=== PATIENT | male | born 1965 | race Caucasian/White ===

== ENCOUNTER 2024-07-11 16:23 | Emergency (ER) | payer OTHER, SELFPAY ==
[2024-07-11 16:25] VITALS: BMI 25.8
[2024-07-11 16:35] VITALS: BP 137/85
[2024-07-11 16:51] LABS: % Basophils 0.5 % (0-2); % Immature Granulocytes 0.2 % (0-0.5); % Lymphocytes 28.4 % (20.5-51.1); % Monocytes 7.7 % (1.7-9.3); % Neutrophils 62.2 % (42.2-75.2); Absolute Eosinophils 0.1 10^3/uL (0-0.7); Absolute Lymphocytes 1.7 10^3/uL (1.2-3.4); Absolute Monocytes 0.5 10^3/uL (0.1-0.6); Absolute Neutrophils 3.7 10^3/uL (1.4-6.5); Hematocrit 38.4 % (39.0-52.0); Hemoglobin 13.7 g/dL (13.0-18.0); Mean Corp Hgb Conc. 35.7 g/dL (33.0-37.0); Mean Corpuscular Hgb 29.7 pg (27.0-31.0); Mean Corpuscular Volume 83.1 fL (80.0-94.0); Mean Platelet Volume 10.3 fL (7.4-10.4); Nucleated Red Blood Cells % 0 % (-); Platelet Count 281 10^3/uL (130-400); Red Blood Cell Count 4.62 10^6/uL (4.70-6.10); Red Cell Dist. Width 13.1 % (11.5-14.5)
[2024-07-11 17:00] VITALS: BP 151/79
[2024-07-11 17:09] LABS: ALT (SGPT) 24 U/L (0-50); AST (SGOT) 24 U/L (17-59); Albumin 3.9 g/dl (3.5-5.0); Alkaline Phosphatase 98 U/L (38-126); Blood Urea Nitrogen 15 mg/dl (9-20); Calcium 9.1 mg/dl (8.4-10.2); Carbon Dioxide 26 mmol/L (22-30); Chloride 99 mmol/L (98-107); Estimated Creatinine Clearance > 125 ml/min; Glucose 452 mg/dl (70-99); Potassium 3.9 mmol/L (3.5-5.1); Sodium 135 mmol/L (135-145); Total Bilirubin 0.4 mg/dl (0.2-1.3); Total Protein 6.7 g/dl (6.3-8.2); eGFR > 60.00
[2024-07-11] MEDS: PEPCID 20 MG IV (17:13)
[2024-07-11 17:17] LABS: Troponin I < 0.012 ng/ml
[2024-07-11] MEDS: NOVOLOG vial 10 UNITS SC (17:54)
[2024-07-11] MEDS: NSS 1000 IV (17:57)
[2024-07-11 19:15] LABS: Glucose - Point of Care 339 mg/dl (70-99)
[2024-07-11 20:27] VITALS: BP 169/84
[2024-07-11 20:35] LABS: Troponin I < 0.012 ng/ml
--- NOTE | 2024-07-11 20:51 | ED.GENMED ---
History of Present Illness
General
Chief Complaint: Chest Pain
Time Seen by Provider: 07/11/24 16:32
History of Present Illness
History of Present Illness:
58-year-old male presents to the emergency department for evaluation of episodic chest pain for the past several days. States he has had frequent episodes that occur after eating particular today after eating a slice of pizza however did have
episodes of pain after ambulating last week. Pain is currently rated 3 out of 10, received aspirin and sublingual nitroglycerin prehospital. No history of similar pain. Denies any fevers or chills, denies shortness of breath or abdominal pain at
this time.
Past History
Past History
ED Past Medical History: HTN, Hypercholesterolemia, IDDM and Other
ED Past Surgical History: None
Patient has exhibited threatening behavior?: No
Social History
Tobacco: Former smoker
Alcohol: Occasional
Drug: Marijuana
Personal:
Living: with family
Employment: Employed
Family History
Family History: Cancer and Sudden
Review of Systems
Review of Systems
Allergies reviewed?: Yes
All Other Systems: ROS reviewed and negative except as documented in HPI and ROS
Phy Exam
Physical Exam
Physical Exam:
GEN: Well appearing, NAD, WDWN
Eyes: PERRLA, EOMs intact, no scleral icterus
HENT: NCAT, oral mucosa moist, no JVD
Lungs: CTAB, no wheezes, rales, rhonchi, normal chest wall excursion
Cardiac: RRR, no M/R/G, no peripheral edema. Radial pulses 2+ bilat
Abdomen: S, NT, ND, NABS, no masses or hepatosplenomegaly
Neuro: AO x 3
MSK: No gross deformity or ecchymosis. No edema. No digital clubbing
Skin: No rashes, petechiae. Normal color, no pallor or jaundice.
Psych: Calm, cooperative, proper hygiene
Scores
Heart Score for Chest Pain Patients
STEMI patient?: No
History: Slightly or Non-Suspicious
ECG: Normal
Age: >45 - <65 years
Risk Factors: >/= 3 Risk Factors or History of CAD
Troponin: </= Normal Limit
Heart Score for Chest Pain Patients: 3
Heart Score Risk: 2.5% MACE over next 6 weeks
Course
Orders/Labs/Results
Orders:
Orders
07/11/24 16:27
Electrocardiogram (*1) Urgent
Reason for Study: Chest Pain
EKG- Treatment ONCE
07/11/24 16:40
Complete Blood Count/With Diff Urgent
Comprehensive Metabolic Panel Urgent
Troponin I Urgent
07/11/24 16:57
Famotidine [Pepcid] 20 mg IV NOW STA
07/11/24 17:34
EKG- Treatment ONCE
07/11/24 17:35
0.9% Sodium Chloride 1000 ml [Nss] 1,000 ml IV BOLUS
Insulin Aspart [NOVOLOG vial] 10 units SC NOW STA
CR Chest - 2 Views Urgent
Comment:
Reason For Exam: chest pain
07/11/24 19:00
Bedside Glucose- Treatment ONCE
07/11/24 19:40
Electrocardiogram (*1) Urgent
Reason for Study: Chest Pain
07/11/24 20:02
Troponin I Urgent
Abnormal Lab Results
07/11/24 07/11/24
16:40 19:14
RBC 4.62 L 10^6/uL
(4.70-6.10)
Hct 38.4 L %
(39.0-52.0)
Creatinine 0.5 L mg/dL
(0.7-1.3)
Glucose 452 H* mg/dl
(70-99)
POC Glucose 339 H mg/dl
(70-99)
07/11/24 16:40
07/11/24 16:40
Vital Signs
Initial and Last Documented VS:
Initial Vital Signs
Temp Pulse Resp BP Pulse Ox
97.8 F 94 20 137/85 96
07/11/24 16:35 07/11/24 16:35 07/11/24 16:35 07/11/24 16:35 07/11/24 16:35
Last Documented Vital Signs
Temp Pulse Resp BP Pulse Ox
97.8 F 73 18 169/84 98
07/11/24 16:35 07/11/24 20:26 07/11/24 18:15 07/11/24 20:27 07/11/24 18:30
MDM/Problems Addressed
MDM/Problems Addressed:
Patient's clinical presentation is consistent more with GERD/esophagitis than it is with ACS, nevertheless he has numerous cardiovascular risk factors thus initial and delta troponins were obtained showing no ischemic changes, EKG is unremarkable.
The picture is more compatible with GERD thus we will treat with PPIs however given his numerous risk factors will refer through the chest pain hotline to cardiology as an outpatient
Comment
Comment:
Patient's EKG independently interpreted by me shows a normal sinus rhythm with no ST changes concerning for ischemia
*Critical Care Note
Total Time (30-74mins, 75-104mins- exclusive of procedures): Not Applicable
ED Attending Note
-
Portions of this chart may have been created with voice recognition software.� Occasional wrong word or��sound alike� substitutions may have occurred due to the inherent limitations of voice recognition software.
Discharge Plan
Departure
Patient Disposition: Home (Routine Discharge)
Date of Disposition: 07/11/24
Time of Disposition: 20:51
Patient with high blood pressure during this ER visit?: No
Discharge Problem:
Chest pain
Instructions: Chest Pain CBC Follow Up
Prescriptions:
New
pantoprazole 40 mg tablet,delayed release (DR/EC)
40 mg PO DAILY Qty: 14 0RF
No Action
acarbose 50 MG tablet
50 mg PO DAILY
rosuvastatin 20 MG tablet
20 mg PO DAILY
insulin glargine [Lantus Solostar U-100 Insulin] 300 UNITS/3 ML insulin pen
43 units SC HS
amlodipine 5 mg Tablet
5 mg PO DAILY
lisinopril-hydrochlorothiazide 20-25 mg Tablet
1 tab PO DAILY
aspirin 81 mg Tablet,Chewable
81 mg PO DAILY
cholecalciferol (vitamin D3) [Vitamin D3] 25 mcg (1,000 unit) Tablet
25 mcg PO DAILY
Referrals:
Annmarie Pulido CRNP [Family Provider] -
Activity Restrictions/Additional Instructions:
I suspect your symptoms were more due to acid reflux however due to your severe cardiac risk factors we will refer you to cardiology for a follow-up evaluation
Monitor your glucose more carefully
Interventions
Interventions:
*Risk Screen - Suicide Last Done: 07/11/24 16:39
*Neglect/Abuse Screening Last Done: 07/11/24 16:39
*ED COVID-19 Vaccine History Last Done: 07/11/24 16:39
*Nursing Disposition Last Done: 07/11/24 21:07
ED- Cardiac Assessment Last Done: 07/11/24 17:00
Discharge Date and Time
Discharge Date/Time: 07/11/24 21:07
Print Language: PERSIAN
== END 2024-07-11 21:07 | disposition home or self-care (01) ==
LOC: EMR 16:23
PROVIDERS: Physician Assistant; EMERGENCY PHYSICIAN Emergency Medicine; FAMILY PHYSICIAN Nurse Practitioner
DX: R07.9 Chest pain, unspecified (principal); E11.9 Type 2 diabetes mellitus without complications; E78.00 Pure hypercholesterolemia, unspecified; I10 Essential (primary) hypertension; Z87.891 Personal history of nicotine dependence; Z79.4 Long term (current) use of insulin
CPT/HCPCS: 96374; 96372; 96361; 99285; 71046; 80053; 82962; 84484; 85025; 93005

== ENCOUNTER → 2024-08-11 07:00 | Outpatient (REF) | payer OTHER, SELFPAY | LOC: RCS 07:00 | PROVIDERS: ATTENDING PHYSICIAN Internal Medicine Cardiovascular Disease; FAMILY PHYSICIAN Physician Assistant | DX: R07.89 Other chest pain (principal) | CPT/HCPCS: 93306 ==

== ENCOUNTER → 2024-08-17 08:14 | Outpatient (REF) | payer OTHER, SELFPAY | LOC: RCS 08:14 | PROVIDERS: ATTENDING PHYSICIAN Internal Medicine Cardiovascular Disease; FAMILY PHYSICIAN Physician Assistant | DX: R07.89 Other chest pain (principal) | CPT/HCPCS: 93017; 93350 ==

== ENCOUNTER 2024-09-19 06:24 | Day surgery (SDC) | payer OTHER, SELFPAY ==
[2024-09-19] VITALS (10 sets, daily range): BP systolic 133–183; BP diastolic 84–93; BMI 28.9
[2024-09-19 07:18] LABS: Glucose - Point of Care 186 mg/dl (70-99)
[2024-09-19] MEDS: LOW STRENGTH ASPIRIN 81 MG PO (07:37)
[2024-09-19] MEDS: NSS 282 ML IV (07:37)
[2024-09-19] MEDS: NSS 1000 IV (09:11)
--- NOTE | 2024-09-19 09:23 | ITS.CL.CATH ---
Quality Measurement Specialist - Catheterization
Cardiac Catheterization
Procedure Report:
LEFT HEART CATHETERIZATION
Date of Procedure: September 19, 2024
Referring: Dr. Pieter Ortiz
PROCEDURES:
1. Left heart catheterization with coronary and single-plane left ventriculography
INDICATION: This is a 58-year-old gentleman with a nearly 20-year history of poorly controlled diabetes mellitus, hypertension, hyperlipidemia, and rheumatoid arthritis. He was seen in the emergency department on 07/11/2024 for evaluation of
substernal chest pressure. A subsequent stress echocardiogram was notable for [address] segment depression that persisted throughout recovery. Normal LV imaging pre and post exercise. He is now referred for coronary
angiography in the setting of ongoing chest discomfort. An echocardiogram from 08/11/2024 is notable for preserved LV systolic function with moderate concentric LVH. There was trace mitral regurgitation, aortic valve sclerosis, and no significant
tricuspid regurgitation.
ACCESS: Right radial artery, 6 Kyrgyz sheath
HEMODYNAMICS : (mmHg)
AO (s/d) : 126/82
LV (s/d) : 131/15
LVEDP : 23
CORONARY FINDINGS
DOMINANCE: Right
LEFT MAIN: Normal
LEFT ANTERIOR DESCENDING: The LAD arises normally from the left main and runs in the anterior interventricular groove. There is a long 40-50% proximal to mid LAD stenosis. The first diagonal branch arises very proximally from the LAD and
bifurcates to 2 small diagonal branches in its midportion. Diffuse atherosclerotic disease is noted at the origin of the diagonal branch and in the midportion of the diagonal branch
CIRCUMFLEX: The circumflex is a large-caliber nondominant vessel supplying 2 large obtuse marginal branches. There is heavy calcification in the mid circumflex at the bifurcation of OM1 and OM 2. OM1 is a moderate to large vessel that has a long
80% proximal narrowing and OM 2 is more heavily calcified with a proximal 85% stenosis with a Brewer bifurcation class of 1,1,1. There is a long 70% stenosis in the midportion of OM 2.
RIGHT CORONARY ARTERY: The right coronary artery has a high anterior origin from the aorta with a long 70% stenosis in its midportion. The PDA arises distally. The posterolateral branch is a long 60% mid stenosis extending to a moderate caliber
distal posterolateral vessel.
VENTRICULOGRAPHY: Left ventriculography is performed in an KAYE projection. The digital single-plane left ventricular ejection fraction is estimated above 65% with no regional wall motion abnormalities. Catheter and PVC associated mitral
regurgitation was noted. There is only trivial mitral regurgitation noted in the first sinus beat following for PVCs.
RADIATION SUMMARY: Fluoro Time (min): 7.5, Dose (mGy): 775.3, DAP (Gy.cm2) : 54.5
Closure Device: TR band
CONCLUSIONS
1. Multivessel coronary artery disease with moderate atherosclerotic disease in the mid LAD but severe coronary atherosclerosis in the first diagonal branch, OM1, OM 2, and mid RCA as well as PLB. Given the patient's diabetes I would suspect he
will fare better long-term with surgical revascularization
2. Preserved LV systolic function
RECOMMENDATIONS
1. Increase lisinopril from 20 to 40 mg and change hydrochlorothiazide to 25 mg of chlorthalidone. Will increase carvedilol from 6.25 p.o. twice daily to 12.5 mg p.o. twice daily and titrate amlodipine from 5 mg daily to 5 mg twice daily.
2. Continue high intensity statin
3. Continue aspirin 81 mg daily
4. Follow-up appointment will be scheduled with CT surgery
Copy to: Dr. Pieter Ortiz
[2024-09-19] MEDS: ZESTRIL 40 MG PO (11:02)
[2024-09-19] MEDS: COREG 12.5 MG PO (11:03)
[2024-09-19] MEDS: NORVASC 5 MG PO (11:04)
== END 2024-09-19 12:16 | disposition home or self-care (01) ==
LOC: CATH 06:24
PROVIDERS: ATTENDING PHYSICIAN Internal Medicine Interventional Cardiology; FAMILY PHYSICIAN Family Medicine; OTHER PHYSICIAN Internal Medicine Cardiovascular Disease
DX: I25.10 Atherosclerotic heart disease of native coronary artery without angina pectoris (principal); R07.89 Other chest pain; E11.9 Type 2 diabetes mellitus without complications; I10 Essential (primary) hypertension; E78.5 Hyperlipidemia, unspecified; M06.9 Rheumatoid arthritis, unspecified; R94.31 Abnormal electrocardiogram [ECG] [EKG]; I08.0 Rheumatic disorders of both mitral and aortic valves; Z79.82 Long term (current) use of aspirin
CPT/HCPCS: 82962; 93458; C1894; Q9967

== ENCOUNTER → 2024-10-06 09:23 | Outpatient (REF) | payer OTHER, SELFPAY | LOC: HWRAD 09:23 | PROVIDERS: ATTENDING PHYSICIAN Thoracic Surgery (Cardiothoracic Vascular Surgery) | DX: I25.10 Atherosclerotic heart disease of native coronary artery without angina pectoris (principal); Z01.810 Encounter for preprocedural cardiovascular examination | CPT/HCPCS: 71250 ==

== ENCOUNTER 2024-10-13 04:59 | Inpatient (IN) | payer OTHER, SELFPAY ==
[2024-10-06 12:11] VITALS: BMI 28.0
[2024-10-06 12:54] LABS: % Basophils 0.5 % (0-2); % Eosinophils 1.9 % (0-6); % Immature Granulocytes 0.5 % (0-0.5); % Lymphocytes 32.6 % (20.5-51.1); % Neutrophils 57.5 % (42.2-75.2); Absolute Eosinophils 0.2 10^3/uL (0-0.7); Absolute Lymphocytes 2.5 10^3/uL (1.2-3.4); Absolute Monocytes 0.5 10^3/uL (0.1-0.6); Absolute Neutrophils 4.4 10^3/uL (1.4-6.5); Hematocrit 41.3 % (39.0-52.0); Hemoglobin 14.2 g/dL (13.0-18.0); Mean Corp Hgb Conc. 34.4 g/dL (33.0-37.0); Mean Corpuscular Hgb 28.6 pg (27.0-31.0); Mean Corpuscular Volume 83.1 fL (80.0-94.0); Mean Platelet Volume 10.8 fL (7.4-10.4); Nucleated Red Blood Cells % 0 % (-); Platelet Count 311 10^3/uL (130-400); Red Blood Cell Count 4.97 10^6/uL (4.70-6.10); Red Cell Dist. Width 13.5 % (11.5-14.5); White Blood Cell Count 7.7 10^3/uL (4.8-10.8)
[2024-10-06 12:59] LABS: Urine Albumin 3+ (Neg - Trace); Urine Bilirubin Negative (Negative); Urine Character Clear (Clear); Urine Color Yellow; Urine Glucose 3+ (Negative); Urine Ketone Negative (Negative); Urine Leukocyte Negative (Negative); Urine Nitrite Negative (Negative); Urine Occult Blood 1+ (Negative); Urine Specific Gravity 1.025 (<1.030); Urine Urobilinogen Negative (Neg - 1+)
[2024-10-06 13:06] LABS: INR 1.07; PT 14.3 Sec (11.4-14.6)
[2024-10-06 13:07] LABS: ALT (SGPT) 26 U/L (0-50); APTT 32.9 Sec (23.4-35.0); AST (SGOT) 21 U/L (17-59); Albumin 4.5 g/dl (3.5-5.0); Alkaline Phosphatase 90 U/L (38-126); Blood Urea Nitrogen 26 mg/dl (9-20); Carbon Dioxide 28 mmol/L (22-30); Chloride 100 mmol/L (98-107); Direct Bilirubin 0.1 mg/dl (0.0-0.4); Estimated Creatinine Clearance > 125 ml/min; Glucose 172 mg/dl (70-99); Potassium 4.2 mmol/L (3.5-5.1); Sodium 139 mmol/L (135-145); Total Bilirubin 0.4 mg/dl (0.2-1.3); Total Protein 7.9 g/dl (6.3-8.2); eGFR > 60.00
[2024-10-06 13:38] LABS: Urine Squamous Cell 0-2 /LPF (Few)
[2024-10-06 13:39] LABS: Urine Bacteria Few (Negative); Urine Red Blood Cell 0-2 /HPF (0-2)
--- NOTE | 2024-10-06 14:04 | CM ---
Met with Mr. Childs in [facility]. He states prior to admission he resides with his spouse and daughter in a two story home with two steps tp enter. He states he has a full flight of steps to get to bedroom/full bathroom. He states he has a powder room
on the first floor. He states prior to admission he was independent with ambulation and adls. He states he does not have any DME in the home. He states he gunn a prescription plan. He states his spouse will take a some time off to assist in his
care if needed. The discharge plan is to return home with his spouse and daughter and a home visit by the Transitional Care Nurse when medically stable.
We reviewed pre-op and post-op routines. We reviewed the shower instructions. He has the soap, written instructions and the Cardiothoracic Surgery Educational Booklet. We reviewed restrictions including sternal precautions and driving
restrictions. We also discussed a home visit by the Transitional Care Nurse. He is agreeable to a home visit. The plan is for CABG on Friday, October 11, 2024.
[2024-10-06 14:19] LABS: Glycohemoglobin (HgbA1c) 9.4 % (4.0-5.6)
[2024-10-13] VITALS (13 sets, daily range): BP systolic 87–171; BP diastolic 52–91; BMI 27.6
[2024-10-13] MEDS: PROTONIX 40 MG PO (05:22)
[2024-10-13] MEDS: LOPRESSOR 25 MG PO (05:23)
[2024-10-13] MEDS: MAGNESIUM OXIDE 500 MG PO (05:23)
[2024-10-13] MEDS: BACTROBAN 2% OINTMENT 1 APPLIC NASAL ×2 (05:58→20:04)
--- NOTE | 2024-10-13 06:12 | PTCARENOTE ---
admitted pt into [id number]. full admission and med rec completed. pt confirmed 2 showers and NPO since midnight. pt clipped and washed. all questions answered. awaiting CVOR
[2024-10-13 07:24] LABS: ACT+ - POC 101 Seconds (82-134)
[2024-10-13 07:44] LABS: Urine Albumin 3+ (Neg - Trace); Urine Bilirubin Negative (Negative); Urine Character Clear (Clear); Urine Color Yellow; Urine Glucose 3+ (Negative); Urine Ketone Negative (Negative); Urine Leukocyte Negative (Negative); Urine Nitrite Negative (Negative); Urine Occult Blood 2+ (Negative); Urine Specific Gravity 1.025 (<1.030); Urine Urobilinogen Negative (Neg - 1+)
[2024-10-13 08:33] LABS: B.E. - POC 4.4 mmol/L; Glucose - POC 247 mg/dl (70-99); HCO3 - POC 31 mmol/L (21-28); Hematocrit - POC 39 % PCV (42-52); Hemodilution- POC No; Hemoglobin Calculated - POC 13.3; Ionized Calcium - POC 1.24 mmol/L (1.15-1.33); Lactate - POC 1.47 mmol/L (0.36-0.75); O2 Saturation %Calculated-POC 99.8 % (94-98); PCO2 - POC 51 mmHg (35-48); PO2 - POC 241 mmHg (83-108); Potassium - POC 3.6 mmol/L (3.5-5.1); Sodium - POC 143 mmol/L (136-145); Specimen Type - POC Arterial; pH - POC 7.38 (7.35-7.45)
[2024-10-13 10:03] LABS: ACT+ - POC 932 Seconds (82-134)
[2024-10-13 10:30] LABS: ACT+ - POC 704 Seconds (82-134)
[2024-10-13 10:47] LABS: B.E. - POC 3.4 mmol/L; Glucose - POC 187 mg/dl (70-99); HCO3 - POC 30 mmol/L (21-28); Hematocrit - POC 31 % PCV (42-52); Hemodilution- POC Yes; Hemoglobin Calculated - POC 10.4; Ionized Calcium - POC 1.05 mmol/L (1.15-1.33); Lactate - POC 2.45 mmol/L (0.36-0.75); O2 Saturation %Calculated-POC 99.9 % (94-98); PCO2 - POC 53 mmHg (35-48); PO2 - POC 272 mmHg (83-108); Potassium - POC 4.6 mmol/L (3.5-5.1); Sodium - POC 140 mmol/L (136-145); Specimen Type - POC Arterial; pH - POC 7.36 (7.35-7.45)
[2024-10-13 10:57] LABS: ACT+ - POC 527 Seconds (82-134)
[2024-10-13 11:20] LABS: Urine Amorphous Seen; Urine Squamous Cell 0-2 /LPF (Few)
[2024-10-13 11:21] LABS: Urine Hyaline Cast 0-2 /LPF (0-2); Urine Red Blood Cell 0-2 /HPF (0-2); Urine White Cell 0-2 /HPF (0-5)
[2024-10-13 11:27] LABS: ACT+ - POC 538 Seconds (82-134)
--- NOTE | 2024-10-13 11:31 | CM ---
Chart reviewed. Patient is in the OR today. Patient is independent of ADLS, lives with his and daughter in a 2 STH, 2 SRINIVAS, 0 DME. Plan is for the patient to return home with CT Transitional RN. CM to follow
[2024-10-13 11:45] LABS: Glucose - POC 179 mg/dl (70-99); HCO3 - POC 31 mmol/L (21-28); Hematocrit - POC 37 % PCV (42-52); Hemodilution- POC Yes; Hemoglobin Calculated - POC 12.4; Ionized Calcium - POC 1.11 mmol/L (1.15-1.33); O2 Saturation %Calculated-POC 99.9 % (94-98); PCO2 - POC 53 mmHg (35-48); PO2 - POC 275 mmHg (83-108); Potassium - POC 4.5 mmol/L (3.5-5.1); Sodium - POC 141 mmol/L (136-145); Specimen Type - POC Arterial; pH - POC 7.38 (7.35-7.45)
[2024-10-13 11:58] LABS: ACT+ - POC 598 Seconds (82-134)
[2024-10-13 12:01] LABS: B.E. - POC 3.5 mmol/L; Glucose - POC 187 mg/dl (70-99); HCO3 - POC 30 mmol/L (21-28); Hematocrit - POC 34 % PCV (42-52); Hemodilution- POC Yes; Hemoglobin Calculated - POC 11.5; Ionized Calcium - POC 1.09 mmol/L (1.15-1.33); Lactate - POC 3.68 mmol/L (0.36-0.75); O2 Saturation %Calculated-POC 99.7 % (94-98); PCO2 - POC 50 mmHg (35-48); PO2 - POC 204 mmHg (83-108); Potassium - POC 4.6 mmol/L (3.5-5.1); Sodium - POC 141 mmol/L (136-145); Specimen Type - POC Arterial; pH - POC 7.38 (7.35-7.45)
[2024-10-13 12:22] LABS: ACT+ - POC 479 Seconds (82-134)
[2024-10-13 13:14] LABS: B.E. - POC 1.5 mmol/L; Glucose - POC 167 mg/dl (70-99); HCO3 - POC 27 mmol/L (21-28); Hematocrit - POC 33 % PCV (42-52); Hemodilution- POC Yes; Hemoglobin Calculated - POC 11.4; Ionized Calcium - POC 1.12 mmol/L (1.15-1.33); Lactate - POC 4.01 mmol/L (0.36-0.75); O2 Saturation %Calculated-POC 99.8 % (94-98); PCO2 - POC 48 mmHg (35-48); PO2 - POC 242 mmHg (83-108); Potassium - POC 4.1 mmol/L (3.5-5.1); Sodium - POC 143 mmol/L (136-145); Specimen Type - POC Arterial; pH - POC 7.37 (7.35-7.45)
[2024-10-13 13:19] LABS: ACT+ - POC 107 Seconds (82-134)
[2024-10-13 13:21] LABS: B.E. - POC 0.9 mmol/L; Glucose - POC 180 mg/dl (70-99); HCO3 - POC 28 mmol/L (21-28); Hematocrit - POC 29 % PCV (42-52); Hemodilution- POC Yes; Hemoglobin Calculated - POC 9.9; Ionized Calcium - POC 1.37 mmol/L (1.15-1.33); Lactate - POC 3.05 mmol/L (0.36-0.75); PCO2 - POC 53 mmHg (35-48); PO2 - POC 410 mmHg (83-108); Potassium - POC 3.8 mmol/L (3.5-5.1); Sodium - POC 143 mmol/L (136-145); Specimen Type - POC Arterial; pH - POC 7.32 (7.35-7.45)
--- NOTE | 2024-10-13 14:03 | W.CVOR.SURPR ---
CVOR Surgeon Immed Pre Op
-
I have examined this patient prior to performance of the scheduled procedure.
The patient's condition is unchanged from the time of the dictated/written History and
Physical and the patient is able to undergo the scheduled procedure.
--- NOTE | 2024-10-13 14:03 | W.IMMPOSTOP ---
Addendum entered and electronically signed by Eloy Belle MD 10/13/24 15:17:
[id number]
Original Note:
Surgical Immed Post Op Note
-
CARDIAC SURGERY OPERATIVE NOTE:
Preoperative Dx:
MVCAD
Postoperative Dx:
Same
Procedures:
1) Median sternotomy
2) Takedown of LAVERNE (narrow pedicle)
3) Endoscopic harvest/prep of LLE GSV
4) CABG x 4 (LAVERNE to LAD, GSV to RPDA, GSV to OM1, GSV to OM2 [lrbd-kz-iwvu off proximal aspect of OM1 graft])
Surgeon:
Eloy Belle M.D.
Assistants:
Ant ClarosA.-C.; first press operator throughout, endoscopic harvest/prep of LLE GSV
Yehuda Hassan P.A.-C.; closure of LLE GSV harvest incisions; [id number]-wrpn sternotomy closure
Anesthesia:
Mathew Claire M.D. and David JaquezN.A.
Perfusion:
CPB: 165min, XC: 88min
Findings:
LAVERNE was healthy appearing conduit w/ good blood flow; ELD 2.50mm
LLE GSV was reasonable conduit w/ variable ELDs (2.5-5.0) and slightly thin taylor. There was adequate quantity to accomplish the planned bypass grafts. The RLE GSV was of poorer quality on preoperative U/S assessment and clinical exam.
LAD was visible on the epicardial surface, dense/scattered calcifications; anastomosis performed at junction between middle and distal third of vessel. ELD at this location was 2.75mm. Vessel taylor were normal anteriorly and laterally, but
posterior vessel taylor w/ moderate calcifications. Brisk flow observed w/ release of proximal bulldog clamp
RPDA was visible on the epicardial surface, scattered calcifications, normal taylor at proximal anastomotic site; ELD 2.50mm
OM1 was visible on the epicardial surface, dense/scattered calcifications; ELD 3.50mm
OM2 was visible on the epicardial surface, dense/scattered calcifications; ELD 3.00mm
GSV graft to OM2 was smaller than GSV grafts to OM1 and PDA; There was a proximal segment that was smaller still. I did not feel this portion of the graft was adequate. It was resected and a qivm-er-kspl anastomosis was performed off the vein
graft to the OM1.
The proximal anastomosis of the GSV graft to the OM2 required several repair sutures including use of autologous vein pledget secondary to the thin walled nature of the graft at this location. These maneuvers in conjunction w/ topical hemostatic
agents resulted in good hemostasis
Transit-time U/S flow probe assessment demonstrated good flow in all vein grafts; but this device malfunctioned preventing reassessment with confidence in reported measurements.
Post-MARY: LVEF 70%, no RWMA, mild MR, normal RV function, aggub-pf-hhhn TR
Implants:
CT x 4 (B/L pleural, inferior mediastinal, superior mediastinal)
Sternal wires x 7
Sternal 'X' plate w/ 8 - 12mm screws
Sternal 'Square' plate w/ 4 - 10mm screws
Transfusions:
None
Complications:
None
Condition:
84 sinus (1.4/0.9), 93/62, CVP: 19; 98%
GTTS: levophed 4, insulin 2, precedex 0.5
Stable/guarded to CVICU
[2024-10-13] MEDS: NOVOLOG FLEXPEN SC ×2 (14:20→15:05)
[2024-10-13] MEDS: TYLENOL PO (14:20)
--- NOTE | 2024-10-13 14:35 | PTCARENOTE ---
Addendum entered by Linsey Carlson RN 10/13/24 17:39:
+Rub
Original Note:
Pt received from CVOR. Pt intubated and sedated on precedex gtt. POX 96% Intubated with 8.0 ETT 23cm at the lip. SIMV 40% 14 500 5/5, pt not breathing over the ventilator. RAAS -5. Unresponsive. PERRLA 3mm brisk. NSR with RBBB with rates in the 80s.
BP supported with levophed gtt. SBP goal 90-130. CVP 7, 250 LR bolus give as per CT DRILL DOCTOR. Bilateral radial pulses and DP pulses palpable. No edema noted. Epicardial v-wire thresholds completed, set to back up 50/4/2. No pacing spikes after thresholds
completed. Heart tones audible. Mediastinal chest tubes x2 y-sited to 1atrium to -20cm suction draining red fluid. Right and Left pleural chest tubes y-sited to 1 atrium to -20cm suction draining red fluid. No air leaks, tidaling, crepitus noted.
Output WNL. Lungs clear throughout. Oral airway suctioned for small amount of thin clear sputum. Abdomen soft. Hypoactive BS. Manriquez catheter intact draining clear yellow urine. Sternal incision covered with antibacterial dressing with small amount
of shadowing noted. CT dressing CDI. Left groin puncture site approximated with skin glue PARTY DIRECTOR. Left SVG harvest approximated with skin glue, and covered with GRISELDA. Right IJ cordis intact with slick in place. Right forearm 18g PIV intact. Gtts: Levo @
2mcg/min, Precedex @ 0.5mcg/kg/hr, VIP & Cordis NSS KVO, Insulin per Critical Care Glycemic Protocol. Post op EKG, labs, and CXR completed.
[2024-10-13 14:41] LABS: Glucose - Point of Care 169 mg/dl (70-99)
[2024-10-13 14:48] LABS: B.E. -1.8 mmol/L; HCO3 24.7 mmol/L (21-28); Ionized Calcium 1.26 mMOL/L (1.15-1.33); O2 Saturation % 98.5 % (94-98); PCO2 49 mmHg (35-48); PO2 108 mmHg (83-108); Potassium 4.1 mMOL/L (3.5-5.1); Sodium 138 mMOL/L (136-145); pH 7.31 (7.35-7.45)
[2024-10-13 14:51] LABS: Hemoglobin 10.1 g/dL (13.0-18.0); Platelet Count 227 10^3/uL (130-400)
--- NOTE | 2024-10-13 14:52 | W.PN.CARDCBS ---
Addendum entered and electronically signed by Juan Choi MD 10/13/24 18:47:
Patient now extubated, on norepinephrine, at bedside, awake, communicative, some incisional discomfort
Blood pressure 110-120 at present, heart rate 80s,
Lungs clear, mild rub, tubes intact, JVD okay, no edema, incisions intact
EKG: Initially with right bundle branch block which has subsequently resolved
hemoglobin immediately postop 10.1, creatinine 0.8
Findings, assessments, recommendations as listed below by Beckie Hemphill
Impression:
Doing well postop s/p CABG x4 (MENDOZA to LAD, GSV to RPDA, GSV to OM1, GSV to OM 2) 10/13/[address] surgery
We will continue to follow
Original Note:
Today's Communication / Plan
-
continue post op care
follow EKG
Impression / Plan
-
Primary Dockmaster: Dr. Ortiz
Assessment:
MV CAD s/p CABG x4 (MENDOZA to LAD, GSV to RPDA, GSV to OM1, GSV to OM 2) 10/13/24
HTN
HLD
DM2
History of gastric ulcer
OA
ECHO 08/11/2024: EF 55 to 60%, moderate concentric LVH, no significant valvular abnormalities
Plan:
-Status post CABG x 4 (MENDOZA to LAD, GSV to RPDA, GSV to OM1, GSV to OM 2) 10/13/24
-intubated, sedated
-on levo @1, insulin @2
-EF preserved during case
-EKG immediately postop with right bundle branch block, new compared to prior. Will follow EKG post op
-hgb 10.1. follow post op. for asa, plavix
-Prior to admission was on Norvasc 5 mg twice daily, carvedilol 12.5 mg twice daily, chlorthalidone 25 mg daily, lisinopril 40 mg daily. Will resume outpatient regimen as able
-continue post op care
-d/w nursing
Progress Note - Dockmaster
Subjective
Date of Service: October 13, 2024
intubated, sedated
Objective
Labs:
Labs
Hgb 10.1 g/dL (13.0-18.0) L 10/13/24 14:39
Hct 30.0 % (39.0-52.0) L 10/13/24 14:39
Plt Count 227 10^3/uL (130-400) 10/13/24 14:39
PT 14.3 Sec (11.4-14.6) 10/06/24 12:22
INR 1.07 10/06/24 12:22
APTT 32.9 Sec (23.4-35.0) 10/06/24 12:22
Sodium 139 mmol/L (135-145) 10/06/24 12:22
Potassium 4.2 mmol/L (3.5-5.1) 10/06/24 12:22
BUN 26 mg/dl (9-20) H 10/06/24 12:22
Creatinine 0.7 mg/dL (0.7-1.3) 10/06/24 12:22
Glucose 172 mg/dl (70-99) H 10/06/24 12:22
Vital Signs and I&O:
Vital Signs
Pulse Resp BP Pulse Ox
83 14 154/88 95
10/13/24 14:40 10/13/24 14:40 10/13/24 05:39 10/13/24 14:40
Vital Signs
Pulse Resp BP Pulse Ox
83 14 154/88 95
10/13/24 14:40 10/13/24 14:40 10/13/24 05:39 10/13/24 14:40
Intake & Output
10/11/24 10/12/24 10/13/24 10/14/24
07:59 07:59 07:59 07:59
Intake Total 0 / 0
Balance 0 / 0
Physical Exam
Physical Exam
GEN: No distress, intubated, sedated
HEENT: supple, mmm
LUNGS: CTA B/L, no wheezes
CV: Reg, S1/S2, no murmur
EXT: No cyanosis, clubbing, edema
NEURO: sedated
SKIN: Warm, pink, dry. No rash. Sternotomy dressing c/d/i. CTs in place
--- NOTE | 2024-10-13 14:53 | W.PN.UPDATE ---
Update Note
Progress Note Update
IV fluids: 1600
Crystalloid:� 1200
U.O.:� 300
UF:� 1700
Blood:� None
Wires:� Ventricular
Inotropes:� None
Pressors:� Levophed
Sedatives:� Precedex
�
NEURO: sedated on precedex, pupils +2mm B/L
RESP: #8OT @24cm> 500/60%/14/5. Lungs clear B/L. 2 mediastinal (0cc on arrival) and R/L pleural (15cc on arrival) chest tubes to -20cm suction. Sanguineous drainage
CV: RRR +S1, S2, no S3, no�rub, no murmur. Dermabond to median sternotomy. RIJ w/Slicc
ABD: round, soft, no BS
EXT: no edema, +2/4 DP pulses B/L, no femoral bruit, B/LLE GRISELDA wrap intact; left radial A-line intact
: Manriquez with clear yellow urine
�
A/P: POD #0 s/p CABG x4
MARY: EF�Normal
- wean and extubate
- Monitor CT and urine output
- Follow up labs and CXR
- Wean levophed for maps >65/SBP goal 90-130
- Will start ASA tonight
- EKG pending and will send to cards
- Cards consulted
�
# acute surgical blood loss anemia-expected
- trend CBC
�
�
# T2DM (A1C 9.4)
- insulin infusion x 48h
- resume oral antidiabetic meds when able
- DM management pulp refiner operator consulted
�
# Hyperlipidemia
- resume�statin when tolerating PO
[2024-10-13 15:02] LABS: INR 1.36
[2024-10-13 15:03] LABS: APTT 29.2 Sec (23.4-35.0)
[2024-10-13] MEDS: ANCEF 10 IV ×2 (15:04)
[2024-10-13] MEDS: NSS 500 IV (15:04)
[2024-10-13] MEDS: NEURONTIN PO (15:05)
[2024-10-13] MEDS: PACERONE PO (15:05)
[2024-10-13] MEDS: LR 250 ML IV ×3 (15:06→18:22)
[2024-10-13 15:07] LABS: Blood Urea Nitrogen 19 mg/dl (9-20); Estimated Creatinine Clearance 110 ml/min; Glucose 168 mg/dl (70-99); Magnesium 2.5 mg/dl (1.6-2.3)
--- NOTE | 2024-10-13 15:07 | PN.DE.MGMTRT ---
Insulin Management
- -
10/13/2024: Diabetes Management Consult
58 year old male with PMH: MV CAD s/p CABG x4, HTN, HLD, PUD, OA and T2DM.
Pt is intubated and sedated, unable to provide diabetes hx or discuss diabetes care plan. Information obtained from chart review. Of note, pt was taking Lantus 43 units BID, and Farxiga 10mg daily. A1C 9.4%, Cr 0.8, eGR >60
Pt is POD #0 s/p CABG x4. He was initiated on Critical Care Glycemic Protocol and will remain on continuous insulin infusion x48 post-op.
Plan to transition off insulin drip on Wednesday if medically stable.
Consider administering Lantus 1 hr prior to turning off drip to avoid rebound Hyperglycemia.
Start Lantus 43 units BID and Farxiga 10mg daily after transitioning off insulin drip.
Will follow upon Wednesday.
Diabetes History
- -
Type of Diabetes: 2 requiring insulin
Pre-Admission Diabetes Regimen
Lab Results
Hemoglobin A1c 9.4 % (4.0-5.6) H 10/06/24 12:22
Insulin Pump Settings
IP Diabetes Regimen
10/13/24
14:39
POC Glucose 169 H
Patient Education
--- NOTE | 2024-10-13 15:10 | PTCARENOTE ---
CT HARDWOOD FLOOR SANDER notified of ABG, orders to increase RR to 18, RT at bedside to increase RR from 14 to 18. 30min repeat ABG ordered.
[2024-10-13 15:55] LABS: B.E. -1.4 mmol/L; HCO3 24.3 mmol/L (21-28); O2 Saturation % 98.9 % (94-98); PCO2 44 mmHg (35-48); PO2 107 mmHg (83-108); pH 7.35 (7.35-7.45)
[2024-10-13 16:11] LABS: Glucose - Point of Care 156 mg/dl (70-99)
--- NOTE | 2024-10-13 16:20 | PTCARENOTE ---
Pt awakens to voice, breathing over the vent. RT at bedside to place pt on CPAP trial. Pt tolerating POX 99%. 30 min ABG ordered.
--- NOTE | 2024-10-13 16:45 | PTCARENOTE ---
Pt bathed with CHG wipes. Turned from side to side. No significant dumps from chest tubes. Pt tolerated.
[2024-10-13 17:04] LABS: Glucose - Point of Care 152 mg/dl (70-99)
[2024-10-13 17:14] LABS: B.E. -0.5 mmol/L; HCO3 25.4 mmol/L (21-28); Ionized Calcium 1.23 mMOL/L (1.15-1.33); O2 Saturation % 99.2 % (94-98); PCO2 46 mmHg (35-48); PO2 151 mmHg (83-108); Potassium 4.3 mMOL/L (3.5-5.1); pH 7.35 (7.35-7.45)
--- NOTE | 2024-10-13 17:15 | PTCARENOTE ---
CT EMPLOYMENT ADJUDICATOR at bedside to run EPOC ABG. CT EMPLOYMENT ADJUDICATOR gave verbal orders to extubate patient at this time. RT notified and at bedside to extubate patient @ 1715. POX 98% on 6L NC. Pt rates back pain 05/18. CT EMPLOYMENT ADJUDICATOR notified and offirmiv ordered. IS 500ml.
[2024-10-13] MEDS: OFIRMEV 100 IV (17:21)
--- NOTE | 2024-10-13 18:00 | PTCARENOTE ---
Pt reassessed. Pt resting in bed. C/o 05/18 back and sternal pain, see MAR. Drowsy but oriented x4. Generalized weakness, but able to squeeze hands, and wiggle toes. States numbness in b/l hands. NSR with RBBB on tele with rates in the 80s. BP
supported with 4mcg/min levo. +Rub. POX 99% on 4L NC. Lungs diminished throughout. No sputum noted post extubation. Pt denies nausea. Manriquez catheter draining adequate amounts of clear yellow urine. CT output WNL. Insulin continues to infuse. Pt's
at bedside.
[2024-10-13 18:04] LABS: Glucose - Point of Care 136 mg/dl (70-99)
[2024-10-13] MEDS: LOW STRENGTH ASPIRIN 81 MG PO (18:09)
[2024-10-13] MEDS: CRESTOR 20 MG PO (18:09)
[2024-10-13] MEDS: DILAUDID 0.5 MG IV (18:17)
[2024-10-13 18:51] LABS: B.E. - POC -0.5 mmol/L; Glucose - POC 152 mg/dl (70-99); HCO3 - POC 25 mmol/L (21-28); Hematocrit - POC 31 % PCV (42-52); Hemodilution- POC Yes; Hemoglobin Calculated - POC 10.5; Ionized Calcium - POC 1.25 mmol/L (1.15-1.33); Lactate - POC 2.55 mmol/L (0.36-0.75); O2 Saturation %Calculated-POC 98.7 % (94-98); PCO2 - POC 45 mmHg (35-48); PO2 - POC 126 mmHg (83-108); Potassium - POC 4.2 mmol/L (3.5-5.1); Sodium - POC 142 mmol/L (136-145); Specimen Type - POC Arterial; pH - POC 7.36 (7.35-7.45)
[2024-10-13 18:58] LABS: Glucose - Point of Care 141 mg/dl (70-99)
[2024-10-13 19:09] LABS: Hematocrit 29.3 % (39.0-52.0); Hemoglobin 9.9 g/dL (13.0-18.0); Platelet Count 271 10^3/uL (130-400)
--- NOTE | 2024-10-13 20:00 | PTCARENOTE ---
Assumed care of patient at 1900. Patient is AOx4, follows commands appropriately, moves all extremities. Lung sounds are diminished in the bases, respirations are shallow, saO2 99% on 4L via NC, there are CTx4: Meds x2 draining to one atrium and R/L
pleural draining to another atrium with wall suction. No airleaks, crepitus. Heart sounds are audible, patient is in SR on the monitor, patient has palpable pulses throughout, no observable edema. Patient has an audible rub on ausculation and has v
wires hooked to temporary pacemakers with settings of 50/4/1. Patient has hypoactive BS and stoddard catheter draining clear yellow urine. There is a sternal incision with aquacell dressing that is CDI, a L groin puncture approx with surg adhesive NIRU,
and LLE incision with GRISELDA wrap. Patient has R IJ cordis with slic, L radial [place] and 18G R FA. Patient has the following gtts: Cordis/VIP KVO, Insulin gtt column 2, Levo@4. Vital signs as follows T:98.5 BP:101/57 P:77 RR:22 CVP:4. Call hill within
reach.
[2024-10-13] MEDS: SENOKOT-S 1 TABLET PO (20:04)
[2024-10-13] MEDS: ANCEF 5 IV (20:04)
[2024-10-13 20:18] LABS: Glucose - Point of Care 138 mg/dl (70-99)
[2024-10-13] MEDS: NEURONTIN 100 MG PO (21:14)
[2024-10-13] MEDS: PACERONE 200 MG PO (21:14)
[2024-10-13] MEDS: TYLENOL 1000 MG PO (21:14)
[2024-10-13 22:14] LABS: Glucose - Point of Care 144 mg/dl (70-99)
[2024-10-13 23:51] LABS: Glucose - Point of Care 138 mg/dl (70-99)
[2024-10-14] VITALS (31 sets, daily range): BP systolic 86–120; BP diastolic 46–73; BMI 29.2
[2024-10-14 01:06] LABS: Glucose - Point of Care 144 mg/dl (70-99)
[2024-10-14] MEDS: TORADOL 15 MG IV ×2 (01:25→09:54)
[2024-10-14 02:13] LABS: Glucose - Point of Care 140 mg/dl (70-99)
--- NOTE | 2024-10-14 02:30 | PTCARENOTE ---
Patient reassessed. Patient while being adjusted in bed became bradycardic requiring pacing and became hypotensive. Resolved within ten seconds spontaneously. Patient asymptomatic. Otherwise remains in SR. Call hill within reach.
[2024-10-14] MEDS: LEVOPHED 250 IV (02:35)
[2024-10-14] MEDS: ANCEF 5 IV ×2 (03:02→12:08)
[2024-10-14 03:09] LABS: Glucose - Point of Care 135 mg/dl (70-99)
[2024-10-14 03:30] LABS: Hemoglobin 9.5 g/dL (13.0-18.0); Mean Corp Hgb Conc. 33.9 g/dL (33.0-37.0); Mean Corpuscular Hgb 28.1 pg (27.0-31.0); Mean Corpuscular Volume 82.8 fL (80.0-94.0); Mean Platelet Volume 10.5 fL (7.4-10.4); Platelet Count 264 10^3/uL (130-400); Red Blood Cell Count 3.38 10^6/uL (4.70-6.10); Red Cell Dist. Width 13.8 % (11.5-14.5)
[2024-10-14 03:45] LABS: Blood Urea Nitrogen 20 mg/dl (9-20); Calcium 8.8 mg/dl (8.4-10.2); Carbon Dioxide 26 mmol/L (22-30); Chloride 107 mmol/L (98-107); Estimated Creatinine Clearance 110 ml/min; Glucose 125 mg/dl (70-99); Magnesium 2.2 mg/dl (1.6-2.3); Potassium 4.1 mmol/L (3.5-5.1); Sodium 139 mmol/L (135-145); eGFR > 60.00
[2024-10-14 04:02] LABS: Glucose - Point of Care 121 mg/dl (70-99)
--- NOTE | 2024-10-14 05:15 | W.PN.CT ---
Addendum entered and electronically signed by Eloy Belle MD 10/14/24 08:55:
I saw and examined the patient.
The PA's note was reviewed and I agree with the note.
Comment:
Postop day #1 status post coronary artery bypass grafting x 4
No major overnight events.
Wean Levophed to off for maps greater than 65
Maintain chest tubes
DC Manriquez catheter
Start colchicine for likely pericarditis
Out of bed, I-S, ambulate
Original Note:
Today's Communication / Plan
-
-pod #1
-no issues overnight
-per MPT, sbp goal was <120 overnight
-drips: insulin, Levo2
-CT outputs: 2 meds 115/180, 2 pleur 70/200 in 12/24 hrs
-deline
-continue insulin
-d/c Manriquez
-possible pericarditis on ECG/ +rub
-current meds (ASA, Plavix, Crestor, Lopressor, Amio, Protonix)
-encourage IS, OOB
Assessment / Plan
-
- Mv-CAD - s/p CABG x 4 (LAVERNE to LAD, GSV to RPDA, GSV to OM1, GSV to OM2 [tqml-di-pptf off proximal aspect of OM1 graft]) by Dr. Belle, pod #1
- Post-MARY: LVEF 70%, no RWMA, mild MR, normal RV function, hufct-ci-vahu TR
- HTN/HLD
- RA
- DM II (HgA1c 9.4)
- GERD, hx gastric ulcer
- Back injury, hx rib fractures
- Urinary frequency/urgency
- Depression
- R knee surgery
- Acute postop blood loss anemia - stable, no transfusion
- Acute postop atelectasis
- Acute postop hypovolemia with subsequent hypervolemia
- Suspect acute postop pericarditis/ +rub
Discussed patient care with: Nursing and Care Team
Subjective
-
Date of Service: October 14, 2024
Objective Data
-
PT 17.0 Sec (11.4-14.6) H 10/13/24 14:39
INR 1.36 10/13/24 14:39
APTT 29.2 Sec (23.4-35.0) 10/13/24 14:39
Vital Signs
Vital Signs
Temp Pulse Resp BP Pulse Ox
99 F 71 20 111/56 98
10/14/24 00:00 10/14/24 00:00 10/14/24 00:00 10/14/24 00:00 10/14/24 00:00
CT Intake/Output/Weight
10/13/24 10/13/24 10/14/24
06:59 18:59 06:59
Intake Total 675.4 / 1153.4 478 / 1153.4
Output Total 470 / 880 410 / 880
Balance 205.4 / 273.4 68 / 273.4
SaO2: 98
Physical Exam
-
General: Awake and AOx3
Cardiovascular: Regular rate & rhythm, No Murmurs and Rub
Respiratory: Decreased Breath Sounds
Sternum: Stable
Incision: Clean, Dry and Intact
Extremities: No Edema (1+ DPs b/l)
Abdomen: soft, nontender, nondistended, + decreased bowel sounds
Data Reviewed
-
Lab Results: Results Reviewed
Medications: Active Meds Reviewed
Chest X-Ray: Report Reviewed and Image Reviewed
ECG: Report Reviewed and Image Reviewed
[2024-10-14] MEDS: NOVOLIN R INSULIN INFUSION 100 IV (05:40)
--- NOTE | 2024-10-14 06:00 | PTCARENOTE ---
Patient reassessed. VSS. Remains SR on the monitor. AM labs obtained. AM hygiene care provided. AM EKG obtained. Received orders to remove patient's slic. Levo tapered as tolerated. O2 weaned to 2L. Manriquez removed at 0600 DTV at 1200.
[2024-10-14] MEDS: TYLENOL 1000 MG PO ×3 (06:13→22:59)
[2024-10-14] MEDS: ROXICODONE 5 MG PO ×3 (06:14→19:39)
[2024-10-14 06:24] LABS: Glucose - Point of Care 157 mg/dl (70-99)
--- NOTE | 2024-10-14 06:28 | PTCARENOTE ---
While assisting patient oob patient became hypotensive and bradycardic on the monitor. Patient reported dizziness and appeared diaphoretic. Per CT PA patient to remain in bed for now. Upon returning to bed patient's vital signs quickly stabilized
and patient reported 'feeling better'. Weight obtained in bed. Levo remains on @1. Clawson to remain in place.
[2024-10-14 08:06] LABS: Glucose - Point of Care 111 mg/dl (70-99)
--- NOTE | 2024-10-14 08:11 | PTCARENOTE ---
Received pt from machinist 2nd shift RN; pt AAOx3 and resting comfortably in bed; NSR on monitor and VSS; V wires set to back up VVI 50/4/1.5 and no pacing noted; RIJ cordis, Left A-line and PIV x1 all patent; all lines leveled and zeroed; Levo and Insulin
infusing see flow sheet for details; + rub; Lungs diminished; IS to 500; CT x4 to -20 wall suction no air leak and no crepitus noted; hypoactive bowel sounds; Manriquez catheter removed by machinist 2nd shift RN, pt DTV by 1200; palpable pulses throughout; no
edema noted; all surgical sites C/D/I; see flow sheet for details.
[2024-10-14] MEDS: LIDOCAINE 4% PATCH 1 PATCH TOPICAL (08:27)
[2024-10-14] MEDS: BACTROBAN 2% OINTMENT 1 APPLIC NASAL ×2 (08:27→19:41)
[2024-10-14] MEDS: SENOKOT-S 1 TABLET PO ×2 (08:28→19:43)
[2024-10-14] MEDS: LOW STRENGTH ASPIRIN 81 MG PO (08:28)
[2024-10-14] MEDS: PACERONE 200 MG PO ×3 (08:28→22:59)
[2024-10-14] MEDS: NEURONTIN 100 MG PO ×3 (08:28→22:59)
[2024-10-14] MEDS: PLAVIX 75 MG PO (08:28)
[2024-10-14] MEDS: MAGNESIUM OXIDE 500 MG PO ×2 (08:28→19:39)
[2024-10-14] MEDS: PROTONIX 40 MG PO (08:28)
[2024-10-14] MEDS: COLCHICINE 0.6 MG PO ×2 (08:45→19:38)
[2024-10-14 09:01] LABS: Glucose - Point of Care 124 mg/dl (70-99)
[2024-10-14] MEDS: NOVOLOG FLEXPEN 4 UNITS SC ×3 (09:06→18:01)
--- NOTE | 2024-10-14 09:40 | W.PN.ANS.POP ---
Anesthesia Post Operative
- Anesthesia Post Op Note
Vital Signs Stable-See Nursing Note: Yes (remains on levophed)
Airway Patent: Yes
Adequate Pain Control: Yes
Change in Mental Status: No
Current Postoperative Nausea & Vomiting: No
Anesthesia Complications: No
General Anesthetic Recall: No
Unplanned Admission: No
Post Op Hydration Adequate: Yes
[2024-10-14] MEDS: FLEXERIL 5 MG PO (09:54)
[2024-10-14 10:01] LABS: Glucose - Point of Care 140 mg/dl (70-99)
--- NOTE | 2024-10-14 10:05 | PTCARENOTE ---
Epicardial V wire inappropriately pacing; Dr Belle and CVNP in room; pacer disconnected from pacer box.
[2024-10-14 11:07] LABS: Glucose - Point of Care 103 mg/dl (70-99)
[2024-10-14 12:06] LABS: Glucose - Point of Care 95 mg/dl (70-99)
--- NOTE | 2024-10-14 12:06 | PTCARENOTE ---
Left A-line removed per CVPA order; NSR on monitor and VSS; assessment unchanged; Insulin infusing per Glycemic protocol see flow sheet for details; family at bedside.
[2024-10-14 13:03] LABS: Glucose - Point of Care 99 mg/dl (70-99)
--- NOTE | 2024-10-14 14:21 | W.PN.CARDCBS ---
Today's Communication / Plan
-
Supportive postop care
Impression / Plan
-
Primary Food Science Professor: Dr. Ortiz
Assessment:
MV CAD s/p CABG x4 (MENDOZA to LAD, GSV to RPDA, GSV to OM1, GSV to OM 2) 10/13/24
HTN
HLD
DM2
History of gastric ulcer
OA
ECHO 08/11/2024: EF 55 to 60%, moderate concentric LVH, no significant valvular abnormalities
Plan:
-Status post CABG x 4 (MENDOZA to LAD, GSV to RPDA, GSV to OM1, GSV to OM 2) 10/13/24
-Hemodynamically stable off pressors
-Twelve-lead EKG with diffuse ST changes c/w pericarditis (+ rub on exam); resolved post op RBBB-agree with initiation of colchicine
-Chest tube management per CTS- repeat EKG after CT removed.
-Continue ASA/Plavix
-Continue amiodarone AF prophylaxis
-Consider Lasix for postop fluid retention
-continue post op care, I-S encouraged
-d/w nursing
Progress Note - Food Science Professor
Subjective
Date of Service: October 14, 2024
Seen and examined. Family at bedside. Patient out of bed to chair. Complaining of postop soreness and pain with deep inspiration.
Objective
Labs:
10/14/24 03:13
10/14/24 03:13
Labs
Hgb 9.5 g/dL (13.0-18.0) L 10/14/24 03:13
Hct 28.0 % (39.0-52.0) L 10/14/24 03:13
Plt Count 264 10^3/uL (130-400) 10/14/24 03:13
PT 17.0 Sec (11.4-14.6) H 10/13/24 14:39
INR 1.36 10/13/24 14:39
APTT 29.2 Sec (23.4-35.0) 10/13/24 14:39
Sodium 139 mmol/L (135-145) 10/14/24 03:13
Potassium 4.1 mmol/L (3.5-5.1) 10/14/24 03:13
BUN 20 mg/dl (9-20) 10/14/24 03:13
Creatinine 0.8 mg/dL (0.7-1.3) 10/14/24 03:13
Glucose 125 mg/dl (70-99) H 10/14/24 03:13
Vital Signs and I&O:
Vital Signs
Temp Pulse Resp BP Pulse Ox
98.0 F 84 16 94/65 98
10/14/24 11:00 10/14/24 14:00 10/14/24 14:00 10/14/24 14:00 10/14/24 14:00
Vital Signs
Temp Pulse Resp BP Pulse Ox
98.0 F 84 16 94/65 98
10/14/24 11:00 10/14/24 14:00 10/14/24 14:00 10/14/24 14:00 10/14/24 14:00
Intake & Output
10/12/24 10/13/24 10/14/24 10/15/24
06:59 06:59 06:59 07:59
Intake Total 1348.5 / 1374.8 133.9 / 133.9
Output Total 1195 / 1200 105 / 105
Balance 153.5 / 174.8 28.9 / 28.9
Physical Exam
Physical Exam
GEN: NAD, AAOx3
HEENT: mmm
LUNGS: CTA B/L, no wheezes
CV: Reg, S1/S2, no murmur +rub + CT
EXT: trace edema
[2024-10-14 15:04] LABS: Glucose - Point of Care 140 mg/dl (70-99)
[2024-10-14] MEDS: NSS IV (15:04)
[2024-10-14] MEDS: LASIX 40 MG IV (16:35)
[2024-10-14] MEDS: KCL 20 MEQ PO (16:36)
--- NOTE | 2024-10-14 16:47 | PTCARENOTE ---
Assessment unchanged; NSR on monitor and VSS; family at bedside and pt ambulated hallways with RN.
[2024-10-14 17:02] LABS: Glucose - Point of Care 99 mg/dl (70-99)
[2024-10-14] MEDS: CRESTOR 20 MG PO (17:02)
[2024-10-14 19:01] LABS: Glucose - Point of Care 103 mg/dl (70-99)
[2024-10-14] MEDS: ANESTHETIC LOZENGE 1 LOZENGE PO (19:38)
--- NOTE | 2024-10-14 20:30 | PTCARENOTE ---
Assumed care of patient at 1900. Patient found resting in bed at time of assessment with spouse at bedside. Patient is AOx4, follows commands appropriately, moves all extremities. Lung sounds are diminished in the bases, saO2 97%, CTx4: 2xmeds
draining serosag to one atrium and R/L pleural draining serosang to one atrium. Heart sounds are audible, there is a rub present on auscultation, pulses are palpable, no observable edema, v wires are insulated, patient is SR on the monitor. Patient
has active BS in all four quadrants and is voiding utilizing urinal. Patient has sternal incision with aquacell dressing that is CDI, L groin puncture approx with surg adhesive TILE FITTER and LLE incision approx with surg adhesive NIRU. Patient has R IJ
cordis receiving KVO and R FA PIV receiving insulin gtt. Patient given 5mg Daija for sternal pain. Call hill within reach.
[2024-10-14 21:04] LABS: Glucose - Point of Care 125 mg/dl (70-99)
[2024-10-14 23:02] LABS: Glucose - Point of Care 87 mg/dl (70-99)
[2024-10-15] VITALS (20 sets, daily range): BP systolic 86–144; BP diastolic 50–80; BMI 28.6
--- NOTE | 2024-10-15 | PTCARENOTE ---
Patient reassessed. VSS. Pain well controlled at this time. Remains SR on the monitor. Call hill within reach.
--- NOTE | 2024-10-15 00:33 | W.PN.CT ---
Addendum entered and electronically signed by Eloy Belle MD 10/15/24 09:14:
I saw and examined the patient.
The PA's note was reviewed and I agree with the note.
Comment:
No major overnight issues.
DC chest tubes
Will cut pacing wire prior to discharge.
Diuresis.
Aspirin/Plavix.
Colchicine.
Out of bed, I-S, ambulate.
Original Note:
Today's Communication / Plan
-
No issues overnight�
Continue OOB to chair and working IS�
Consider DC chest tubes (MS *2, PL*2)�
Consider DC V pacer wires�
Current meds (ASA, Plavix, Crestor, Lopressor, Amio, Protonix, Colchicine)�
Lasix * 1 on 10/14 for fluid retention�
Consider DC insulin drip�
Maintain cordis�
Assessment / Plan
-
- Mv-CAD - s/p CABG x 4 (LAVERNE to LAD, GSV to RPDA, GSV to OM1, GSV to OM2 [oyyg-mv-fudh off proximal aspect of OM1 graft]) by Dr. Belle, pod #2
- Post-MARY: LVEF 70%, no RWMA, mild MR, normal RV function, skaea-bn-epim TR
- HTN/HLD
- RA
- DM II (HgA1c 9.4)
- GERD, hx gastric ulcer
- Back injury, hx rib fractures
- Urinary frequency/urgency
- Depression
- R knee surgery
- Acute postop blood loss anemia - stable, no transfusion
- Acute postop atelectasis
- Acute postop hypovolemia with subsequent hypervolemia
- Suspect acute postop pericarditis/ +rub
Subjective
-
Date of Service: October 15, 2024
Objective Data
-
PT 17.0 Sec (11.4-14.6) H 10/13/24 14:39
INR 1.36 10/13/24 14:39
APTT 29.2 Sec (23.4-35.0) 10/13/24 14:39
Vital Signs
Vital Signs
Temp Pulse Resp BP Pulse Ox
98.5 F 83 20 110/65 98
10/14/24 23:00 10/15/24 00:00 10/15/24 00:00 10/15/24 00:00 10/15/24 00:00
CT Intake/Output/Weight
10/14/24 10/14/24 10/15/24
06:59 18:59 07:59
Intake Total 673.1 / 1374.8 188.7 / 265.4 76.7 / 265.4
Output Total 725 / 1200 515 / 545 30 / 545
Balance -51.9 / 174.8 -326.3 / -279.6 46.7 / -279.6
SaO2: 98
Physical Exam
-
General: Awake, Oriented and AOx3
Cardiovascular: Regular rate & rhythm
Respiratory: Clear
Sternum: Stable
Incision: Clean, Dry and Intact
Extremities: Edema +1
[2024-10-15 01:03] LABS: Glucose - Point of Care 123 mg/dl (70-99)
[2024-10-15] MEDS: TORADOL 15 MG IV (01:45)
[2024-10-15] MEDS: ANESTHETIC LOZENGE 1 LOZENGE PO ×3 (01:49→19:17)
[2024-10-15 04:09] LABS: Glucose - Point of Care 106 mg/dl (70-99)
[2024-10-15 04:32] LABS: Hematocrit 24.5 % (39.0-52.0); Mean Corp Hgb Conc. 32.7 g/dL (33.0-37.0); Mean Corpuscular Volume 88.8 fL (80.0-94.0); Mean Platelet Volume 10.5 fL (7.4-10.4); Platelet Count 191 10^3/uL (130-400); Red Blood Cell Count 2.76 10^6/uL (4.70-6.10); Red Cell Dist. Width 14.3 % (11.5-14.5); White Blood Cell Count 8.3 10^3/uL (4.8-10.8)
[2024-10-15 04:48] LABS: Blood Urea Nitrogen 27 mg/dl (9-20); Calcium 8.6 mg/dl (8.4-10.2); Carbon Dioxide 30 mmol/L (22-30); Chloride 99 mmol/L (98-107); Estimated Creatinine Clearance 98 ml/min; Glucose 96 mg/dl (70-99); Magnesium 2.3 mg/dl (1.6-2.3); Potassium 3.9 mmol/L (3.5-5.1); Sodium 136 mmol/L (135-145); eGFR > 60.00
[2024-10-15] MEDS: TYLENOL 1000 MG PO ×3 (06:04→20:54)
[2024-10-15] MEDS: KCL 20 MEQ PO ×2 (06:05→09:49)
[2024-10-15 06:13] LABS: Glucose - Point of Care 80 mg/dl (70-99)
--- NOTE | 2024-10-15 06:21 | PTCARENOTE ---
Patient reassessed. Slightly hypotensive this AM asymptomatic and otherwise stable. AM labs obtained. AM hygiene care provided. Patient tolerated transfer to chair. K repleted with 20 PO.
[2024-10-15] MEDS: ROXICODONE 5 MG PO ×3 (06:32→20:53)
[2024-10-15] MEDS: NOVOLIN R INSULIN INFUSION 100 IV (06:53)
[2024-10-15 08:03] LABS: Glucose - Point of Care 162 mg/dl (70-99)
[2024-10-15] MEDS: LIDOCAINE 4% PATCH 1 PATCH TOPICAL (08:04)
[2024-10-15] MEDS: PLAVIX 75 MG PO (08:05)
[2024-10-15] MEDS: NOVOLOG FLEXPEN 4 UNITS SC (08:05)
[2024-10-15] MEDS: SENOKOT-S 1 TABLET PO ×2 (08:05→20:54)
[2024-10-15] MEDS: PROTONIX 40 MG PO (08:05)
[2024-10-15] MEDS: LOW STRENGTH ASPIRIN 81 MG PO (08:05)
[2024-10-15] MEDS: NEURONTIN 100 MG PO ×3 (08:05→20:54)
[2024-10-15] MEDS: COLCHICINE 0.6 MG PO ×2 (08:05→20:55)
[2024-10-15] MEDS: PACERONE 200 MG PO ×3 (08:05→20:54)
[2024-10-15] MEDS: MAGNESIUM OXIDE 500 MG PO ×2 (08:05→20:54)
[2024-10-15] MEDS: BACTROBAN 2% OINTMENT 1 APPLIC NASAL ×2 (08:06→20:53)
--- NOTE | 2024-10-15 08:28 | PTCARENOTE ---
Received pt from night coordinator RN; pt AOOx3 and resting comfortably in chair; NSR on monitor and VSS; Epicardial V wire insulated; RIJ Cordis and PIV x1 patent; Insulin infusing per Glycemic protocol see flow sheet for details; Lungs diminished; IS to
750; CT x4 to -20 wall suction, no air leak and no crepitus noted; hypoactive bowel sounds; pt voiding yellow urine; palpable pulses throughout; no edema noted; all surgical sites C/D/I; see nursing documentation for further details.
[2024-10-15] MEDS: LASIX 40 MG PO (09:49)
[2024-10-15 09:55] LABS: Glucose - Point of Care 107 mg/dl (70-99)
--- NOTE | 2024-10-15 10:22 | PTCARENOTE ---
CT x4 removed per CVPA order.
[2024-10-15 12:08] LABS: Glucose - Point of Care 117 mg/dl (70-99)
--- NOTE | 2024-10-15 12:08 | W.PN.CARDCBS ---
Today's Communication / Plan
-
DC chest tubes
Pain management for postop pericarditis
Repeat EKG in the morning
Diuretics
Increase activity/I-S
Impression / Plan
-
Primary Administrative Representative: Dr. Ortiz
Assessment:
MV CAD s/p CABG x4 (MENDOZA to LAD, GSV to RPDA, GSV to OM1, GSV to OM 2) 10/13/24
HTN
HLD
DM2
History of gastric ulcer
OA
ECHO 08/11/2024: EF 55 to 60%, moderate concentric LVH, no significant valvular abnormalities
Plan:
-Status post CABG x 4 (MENDOZA to LAD, GSV to RPDA, GSV to OM1, GSV to OM 2) 10/13/24
-Hemodynamically stable off pressors
-Twelve-lead EKG with diffuse ST changes c/w pericarditis (+ rub on exam); resolved post op RBBB-agree with initiation of colchicine
-Chest tube removal today
-Repeat EKG tomorrow
-Continue ASA/Plavix
-Continue amiodarone AF prophylaxis
-Lasix for postop fluid retention
-continue post op care, I-S encouraged
-d/w nursing
Progress Note - Administrative Representative
Subjective
Date of Service: October 15, 2024
Seen and examined. Overnight continues to have soreness and pain with inspiration. Plan for discontinuation of chest tubes
Objective
Labs:
10/15/24 04:15
10/15/24 04:15
Labs
Hgb 8.0 g/dL (13.0-18.0) L 10/15/24 04:15
Hct 24.5 % (39.0-52.0) L 10/15/24 04:15
Plt Count 191 10^3/uL (130-400) D 10/15/24 04:15
PT 17.0 Sec (11.4-14.6) H 10/13/24 14:39
INR 1.36 10/13/24 14:39
APTT 29.2 Sec (23.4-35.0) 10/13/24 14:39
Sodium 136 mmol/L (135-145) 10/15/24 04:15
Potassium 3.9 mmol/L (3.5-5.1) 10/15/24 04:15
BUN 27 mg/dl (9-20) H 10/15/24 04:15
Creatinine 0.9 mg/dL (0.7-1.3) 10/15/24 04:15
Glucose 96 mg/dl (70-99) 10/15/24 04:15
Vital Signs and I&O:
Vital Signs
Temp Pulse Resp BP Pulse Ox
98.5 F 89 18 144/76 94
10/15/24 12:00 10/15/24 12:00 10/15/24 12:00 10/15/24 11:03 10/15/24 12:00
Vital Signs
Temp Pulse Resp BP Pulse Ox
98.5 F 89 18 144/76 94
10/15/24 12:00 10/15/24 12:00 10/15/24 12:00 10/15/24 11:03 10/15/24 12:00
Intake & Output
10/13/24 10/14/24 10/15/24 10/16/24
05:59 05:59 06:59 06:59
Intake Total 88.4 / 88.4
Output Total 600 / 600
Balance -511.6 / -511.6
Physical Exam
Physical Exam
GEN: NAD, AAOx3
HEENT: mmm
LUNGS: CTA B/L, no wheezes
CV: Reg, S1/S2, no murmur +rub + CT
EXT: trace edema
--- NOTE | 2024-10-15 13:03 | PTCARENOTE ---
Assessment unchanged; NSR on monitor and VSS; family at bedside and pt ambulating hallways with RN.
[2024-10-15] MEDS: LANTUS 0.43 UNITS SC (13:42)
[2024-10-15 13:45] LABS: Glucose - Point of Care 106 mg/dl (70-99)
[2024-10-15] MEDS: NOVOLOG FLEXPEN SC (14:01)
[2024-10-15 15:10] LABS: Glucose - Point of Care 125 mg/dl (70-99)
[2024-10-15] MEDS: NSS 500 IV (15:11)
--- NOTE | 2024-10-15 15:20 | PTCARENOTE ---
Insulin drip and Glycemic protocol discontinued per order.
[2024-10-15] MEDS: CRESTOR 20 MG PO (17:08)
[2024-10-15] MEDS: FLEXERIL 5 MG PO (17:10)
--- NOTE | 2024-10-15 17:11 | PTCARENOTE ---
NSR on monitor and VSS; assessment unchanged and family at bedside.
[2024-10-15 17:16] LABS: Glucose - Point of Care 179 mg/dl (70-99)
[2024-10-15] MEDS: NOVOLOG FLEXPEN-MODERATE RESISTANCE 1 UNITS SC (17:57)
--- NOTE | 2024-10-15 19:00 | PTCARENOTE ---
assumed care of patient @ 1900. received pt laying in bed, Aox3. NSR on tele VSS. V wire insulated. +pulses - E. Lungs clear, diminished on room air taking shallow breaths. 1000 on IS. Hypo belly passing gas. Voiding in urinal. Sternal aquacel with
old scant drainage. CT dressing intact, L groin and L leg SVG sites TEACHER PHYSICALLY IMPAIRED CDI. R IJ cordis and forearm PIV patent. assisted pt to walk 1 lap around hallway with steady gait. BP stable post. Now resting comfortably in chair with call hill within reach.
[2024-10-16] VITALS (11 sets, daily range): BP systolic 117–162; BP diastolic 60–75; PULSE 84; O2SAT 98–99; BMI 28.5
--- NOTE | 2024-10-16 00:23 | PTCARENOTE ---
pt sleeping comfortably in chair, no change in assessment .
--- NOTE | 2024-10-16 00:33 | W.PN.CT ---
Today's Communication / Plan
-
No issues overnight�
Continue OOB to chair and working IS�
Cut pacer V pacer wires�on discharge
Beta phuong on hold; consider restarting when hemodynamic improve�
Current meds (ASA, Plavix, Crestor, lasix, Lopressor, Amio, Protonix, Colchicine)�
Lasix daily for fluid retention�
Maintain cordis�
Assessment / Plan
-
- Mv-CAD - s/p CABG x 4 (LAVERNE to LAD, GSV to RPDA, GSV to OM1, GSV to OM2 [mcbp-ym-maaj off proximal aspect of OM1 graft]) by Dr. Belle, pod #3
- Post-MARY: LVEF 70%, no RWMA, mild MR, normal RV function, qffin-oo-aifb TR
- HTN/HLD
- RA
- DM II (HgA1c 9.4)
- GERD, hx gastric ulcer
- Back injury, hx rib fractures
- Urinary frequency/urgency
- Depression
- R knee surgery
- Acute postop blood loss anemia - stable, no transfusion
- Acute postop atelectasis
- Acute postop hypovolemia with subsequent hypervolemia
- Suspect acute postop pericarditis/ +rub
Subjective
-
Date of Service: October 16, 2024
Objective Data
-
PT 17.0 Sec (11.4-14.6) H 10/13/24 14:39
INR 1.36 10/13/24 14:39
APTT 29.2 Sec (23.4-35.0) 10/13/24 14:39
Vital Signs
Vital Signs
Temp Pulse Resp BP Pulse Ox
98.9 F 81 16 96/67 96
10/15/24 19:12 10/16/24 00:15 10/15/24 23:00 10/15/24 23:02 10/15/24 23:00
CT Intake/Output/Weight
10/15/24 10/15/24 10/16/24
06:59 18:59 06:59
Intake Total 130.4 / 130.4
Output Total 600 / 1100 500 / 1100
Balance -469.6 / -969.6 -500 / -969.6
SaO2: 96
Physical Exam
-
General: Awake
Cardiovascular: Regular rate & rhythm
Respiratory: Clear and Equal
Sternum: Stable
Incision: Clean, Dry and Intact
Extremities: Edema +1
[2024-10-16] MEDS: ROXICODONE 5 MG PO ×4 (02:04→22:50)
[2024-10-16 02:20] LABS: Hematocrit 25.4 % (39.0-52.0); Hemoglobin 8.1 g/dL (13.0-18.0); Mean Corp Hgb Conc. 31.9 g/dL (33.0-37.0); Mean Corpuscular Volume 87.9 fL (80.0-94.0); Platelet Count 229 10^3/uL (130-400); Red Blood Cell Count 2.89 10^6/uL (4.70-6.10); Red Cell Dist. Width 14.1 % (11.5-14.5); White Blood Cell Count 8.2 10^3/uL (4.8-10.8)
[2024-10-16] MEDS: ANESTHETIC LOZENGE 1 LOZENGE PO ×2 (02:21→15:22)
[2024-10-16 02:44] LABS: Blood Urea Nitrogen 29 mg/dl (9-20); Calcium 8.7 mg/dl (8.4-10.2); Carbon Dioxide 27 mmol/L (22-30); Chloride 97 mmol/L (98-107); Estimated Creatinine Clearance 110 ml/min; Glucose 172 mg/dl (70-99); Magnesium 2.3 mg/dl (1.6-2.3); Potassium 4.2 mmol/L (3.5-5.1); Sodium 134 mmol/L (135-145); eGFR > 60.00
[2024-10-16] MEDS: TYLENOL 1000 MG PO ×3 (06:33→22:50)
[2024-10-16 07:37] LABS: Glucose - Point of Care 225 mg/dl (70-99)
[2024-10-16] MEDS: NOVOLOG FLEXPEN-MODERATE RESISTANCE 3 UNITS SC ×2 (07:37→18:32)
[2024-10-16] MEDS: COLCHICINE 0.6 MG PO ×2 (08:07→20:48)
[2024-10-16] MEDS: LASIX 40 MG PO (08:07)
[2024-10-16] MEDS: SENOKOT-S 1 TABLET PO ×2 (08:07→20:48)
[2024-10-16] MEDS: FARXIGA 10 MG PO (08:07)
[2024-10-16] MEDS: MAGNESIUM OXIDE 500 MG PO ×2 (08:07→20:48)
[2024-10-16] MEDS: PACERONE 200 MG PO ×3 (08:07→22:49)
[2024-10-16] MEDS: PROTONIX 40 MG PO (08:08)
[2024-10-16] MEDS: NEURONTIN 100 MG PO ×3 (08:08→22:50)
[2024-10-16] MEDS: LIDOCAINE 4% PATCH TOPICAL (08:08)
[2024-10-16] MEDS: LANTUS 0.43 UNITS SC ×2 (08:08→22:49)
[2024-10-16] MEDS: BACTROBAN 2% OINTMENT 1 APPLIC NASAL ×2 (08:08→20:47)
[2024-10-16] MEDS: PLAVIX 75 MG PO (08:08)
[2024-10-16] MEDS: LOW STRENGTH ASPIRIN 81 MG PO (08:08)
--- NOTE | 2024-10-16 08:16 | PN.DE.MGMTRT ---
Insulin Management
- -
10/16/2024: Diabetes Management Follow up
58 year old male admitted for elective cardiac bypass surgery.
PMH: MV CAD s/p CABG x4, HTN, HLD, PUD, OA and T2DM. Pt reports he was taking Lantus 43 units BID, and Farxiga 10mg daily. States his PCP manages diabetes. He has a glucose monitor but does not check his blood sugars and doesn't know where his meter
is. He dose not follow any specific diabetes diet and doesn't exercise regularly. A1C on admission was 9.4%, Cr 0.8, eGR >60
Pt awake, alert, oriented, sitting up in chair, offers no complaints, able to discuss diabetes care plan.
Now POD # 3 s/p CABG x 4, doing well. He was transitioned off Critical Care Glycemic Protocol to his OP regimen
Received Lantus prior to turning off drip, no Lantus ordered at HS. 2AM blood sugar was 172(V), FBG 225 this AM.
Discussed current glucose range and A1C with pt, emphasizing importance of optimal Glucose control to avoid diabetes related complications and pt was amenable to AC NovoLog. Will start AC NovoLog 5 units, cont Lantus 43 units BID and Farxiga 10mg
daily. Cont Farxiga 10mg daily.
Will ask Diabetes Nurse Educator to see pt and provide new glucose monitor and reinforce education on insulin pen needle use at home
Discussed with Nurse. Will cont to follow .
Diabetes History
- -
Type of Diabetes: 2 requiring insulin
Pre-Admission Diabetes Regimen
10/16/24
02:06
Creatinine 0.8
Lab Results
Hemoglobin A1c 9.4 % (4.0-5.6) H 10/06/24 12:22
Insulin Pump Settings
IP Diabetes Regimen
10/15/24 10/15/24 10/15/24
09:53 12:01 13:43
Glucose
POC Glucose 107 H 117 H 106 H
10/15/24 10/15/24 10/16/24
15:08 17:15 02:06
Glucose 172 H
POC Glucose 125 H 179 H
10/16/24
07:35
Glucose
POC Glucose 225 H
Patient Education
--- NOTE | 2024-10-16 08:52 | PTCARENOTE ---
assumed care of pt from previous shift RN, sinus rhythm on tele, VSS, +peripheral pulses, denies CP. Lungs diminished, pox 96-98% on RA, coughing and deep breathing encouraged. +bs, tolerating PO intake, voids spontaneously. Cordis and PIV flush
easily. Surgical dressings intact, Pt medicated for pain. Plan of care reviewed and questions encouraged.
--- NOTE | 2024-10-16 11:43 | W.PN.CARDCBS ---
Addendum entered and electronically signed by Andry Gutierrez DO 10/16/24 14:41:
I saw and examined the patient.
The Guest Experience Captain's note was reviewed and I agree with the note.
Comment:
Plan:
Resume Lopressor and Lisinopril
Remains sinus
Improvement with colchicine
Diuresis with lasix
Cont post op care
Cont DAPT
Encouraged ambulation
Original Note:
Today's Communication / Plan
-
Resume Lopressor and lisinopril at 5 mg
Encouraged I-S
Usual postop care
Impression / Plan
-
Primary Beverage Manager: Dr. Ortiz
Assessment:
MV CAD s/p CABG x4 (MENDOZA to LAD, GSV to RPDA, GSV to OM1, GSV to OM 2) 10/13/24
HTN
HLD
DM2
History of gastric ulcer
OA
ECHO 08/11/2024: EF 55 to 60%, moderate concentric LVH, no significant valvular abnormalities
Plan:
-Status post CABG x 4 (MENDOZA to LAD, GSV to RPDA, GSV to OM1, GSV to OM 2) 10/13/24
-Hemodynamically stable off pressors; chest tubes and swan out.
-Twelve-lead EKG 10/14/[address] changes c/w pericarditis (+ rub on exam); Started on colchicine 10/14/24 with improvement
-Repeat EKG today
-Chest x-ray 10/16/2024 stable without pneumothorax following chest tube removal bibasilar opacities suggestive of subsegmental atelectasis. Encouraged I-S
-Metoprolol previously on hold however heart rate and blood pressure better. Resumed at 12.5 mg twice daily 10/16/2024
-Restart low-dose lisinopril 5 mg
-Continue amiodarone AF prophylaxis
-Ongoing diuresis with oral Lasix 40 mg for postop fluid retention
-Renal function and electrolytes stable, creatinine 0.8, K4.2, mag 2.3
-Continue ASA/Plavix, Farxiga, rosuvastatin
-continue post op care
-d/w nursing, CT surgery
Progress Note - Beverage Manager
Subjective
Date of Service: October 16, 2024
Patient seen and examined. Patient sitting in bed. Patient reports he worked with physical therapy and was able to ambulate around the unit and up stairs without difficulty. Still notes some sternal incisional pain.
Objective
Labs:
10/16/24 02:06
10/16/24 02:06
Labs
Hgb 8.1 g/dL (13.0-18.0) L 10/16/24 02:06
Hct 25.4 % (39.0-52.0) L 10/16/24 02:06
Plt Count 229 10^3/uL (130-400) 10/16/24 02:06
PT 17.0 Sec (11.4-14.6) H 10/13/24 14:39
INR 1.36 10/13/24 14:39
APTT 29.2 Sec (23.4-35.0) 10/13/24 14:39
Sodium 134 mmol/L (135-145) L 10/16/24 02:06
Potassium 4.2 mmol/L (3.5-5.1) 10/16/24 02:06
BUN 29 mg/dl (9-20) H 10/16/24 02:06
Creatinine 0.8 mg/dL (0.7-1.3) 10/16/24 02:06
Glucose 172 mg/dl (70-99) H 10/16/24 02:06
Vital Signs and I&O:
Vital Signs
Temp Pulse Resp BP Pulse Ox
99 F 84 16 120/69 96
10/16/24 07:35 10/16/24 08:00 10/16/24 07:35 10/16/24 07:35 10/16/24 08:59
Vital Signs
Temp Pulse Resp BP Pulse Ox
99 F 84 16 120/69 96
10/16/24 07:35 10/16/24 08:00 10/16/24 07:35 10/16/24 07:35 10/16/24 08:59
Intake & Output
10/14/24 10/15/24 10/16/24 10/17/24
05:59 06:59 06:59 06:59
Intake Total 610.4 / 610.4
Output Total 1400 / 1400
Balance -789.6 / -789.6
Physical Exam
Physical Exam
GEN: No distress, awake, Ox3
HEENT: supple, anicteric, mmm
LUNGS: Decreased at left base otherwise CTA, no wheezes/rales
CV: Reg, S1/S2, no murmur, rub or gallop
Chest: Sternotomy stable, incision well-approximated
ABD: soft, BS+, NT/ND
EXT: No edema, clubbing or cyanosis
NEURO: Gross non-focal
SKIN: No rash, warm, dry, pink
--- NOTE | 2024-10-16 11:54 | PTCARENOTE ---
cordis removed without incident. VSS. Pt ambulating independently.
[2024-10-16] MEDS: ZESTRIL 5 MG PO (13:10)
[2024-10-16] MEDS: NOVOLOG FLEXPEN-MODERATE RESISTANCE 1 UNITS SC (13:23)
[2024-10-16] MEDS: NOVOLOG FLEXPEN 5 UNITS SC ×2 (13:24→18:32)
[2024-10-16 13:33] LABS: Glucose - Point of Care 192 mg/dl (70-99)
[2024-10-16] MEDS: NSS IV (14:20)
[2024-10-16] MEDS: FLEXERIL 5 MG PO (15:17)
--- NOTE | 2024-10-16 15:17 | CM ---
Chart reviewed. Patient is independent of ADLS, lives with his and daughter in a 2 [address], 2 [facility]IV[facility], 0 DME. Plan is for the patient to return home with CT Transitional RN. CM to follow
--- NOTE | 2024-10-16 15:30 | PTCARENOTE ---
report received from previous RN. pt resting OOB in chair. ambulating independently in room and halls. SR on telemetry heart rate in 80s. pulses palpable. +1 ankle edema. pt on room air. sat 98%. lung sounds diminished in bases. active bowel sounds.
voiding in bathroom, surgical site NIRU CDI. pt updated on plan of care.
--- NOTE | 2024-10-16 15:39 | PTCARENOTE ---
Addendum entered by Malissa Bui RN 10/17/24 08:13:
Requested order for Contour Next Gen test strips and microlet lancets.
Original Note:
10/16/2024 DIABETES EDUCATION
I met with Mr. Childs to review diabetes management, has had T2D for 10 years and takes Lantus at home.
He has chekced his BS in the past with a glucometer and CGM. States he no longer checks BS with either device, does not like finger stick and had difficulty with CGM adherence. I educated on option to use a clear adhesive bandage over CGM for
improved adhesion.
I educated on physiology of T2D, managing with medications, monitoring BG, nutrition, activity, sleep and managing stress. I reinforced signs of hyperglycemia, hypoglycemia; BS parameters and recommended HbA1c goals. I educated on organ damage,
increased risk of infection and nerve damage with a diabetes diagnosis. Written material provided.
I educated and reviewed using Contour Next glucometer, member acknowledged understanding with a self demonstration of checking BS.
I educated and demonstrated on insulin injection technique, timing, and storage. Discussed long and short acting insulin; onset/peak/duration, and encouraged Mr. Childs to administer his own injections with RN supervision while admitted.
Patient verbalized familiarity with insulin injection, currently takes Lantus at home.
Discussed normal target glucose ranges and a monitoring schedule before meals with Novolog and before bed, or as directed per discharge instructions and/or MD direction. Encouraged patient to follow up with his PCP for post d/c appointment and
to monitor medication and blood glucose levels. Information provided on the outpatient DSME program. Patient and spouse verbalized understanding.
[2024-10-16] MEDS: CRESTOR 20 MG PO (17:44)
[2024-10-16 18:12] LABS: Glucose - Point of Care 207 mg/dl (70-99)
--- NOTE | 2024-10-16 21:00 | PTCARENOTE ---
Patient received OOB in chair. Patient A+A+Ox3. No neurological deficits noted. Ambulating in room and to bathroom by self. No c/o headache, dizziness or lightheadedness. Room air. SpO2 93%. No c/o SOB. No العراقي. Four chest tube sutures with
dressing. Sinus Rhythm. Heart rate 80's. Blood pressure 117/60 (77). Patient with no c/o chest pain, pressure or discomfort. Normoactive bowel sounds. No BM. No c/o nausea. No vomiting. Voiding without difficulty. Sternal dressing intact.
Left groin puncture site intact. Left knee incision intact - Surgical adhesive. Lower extremity edema. Positive, palpable pulses. No c/o back or flank pain. Afebrile. Assessment as documented.
[2024-10-16] MEDS: TOPROL XL 12.5 MG PO (21:14)
[2024-10-16 22:42] LABS: Glucose - Point of Care 183 mg/dl (70-99)
--- NOTE | 2024-10-16 23:30 | PTCARENOTE ---
Toprol XL 12.5 mg PO ordered by Moshe BLACK PA-C, given without difficulty. Roxicodone 5 mg PO for pain management. Patient resting in bed. Assessment/Interventions as documented.
[2024-10-17] VITALS (7 sets, daily range): BP systolic 115–135; BP diastolic 63–72; PULSE 81; O2SAT 67–72; BMI 28.3
--- NOTE | 2024-10-17 04:41 | W.PN.CT ---
Today's Communication / Plan
-
Plan:
-No major issues overnight. Hemodynamically and neurologically intact
-BP has been soft postop, improved, now tolerating resumption of BB and low dose Lisinopril
-Switched Lopressor to Toprol XL, pt was Coreg 12.5 mg PO BID at home
-H/H 7.8/24.2, hyponatremia, 134. Diurese today, wt up 6 lbs from preop
-Mg 2.4, will place mag oxide on hold
-Diabetes CLINICAL ENGINEER/educator following, on insulin @ home with A1C of 9.4
-Cont. current meds (ASA, Plavix, Crestor, Lasix, Toprol XL, Amio, Protonix, Colchicine)�
-F/U 2-view cxr
-Encourage use of IS
-OOB into chair/Ambulate
-Will d/c (cut) temporary PW before home
-D/C Home
Assessment / Plan
-
- Mv-CAD - s/p CABG x 4 (LAVERNE to LAD, GSV to RPDA, GSV to OM1, GSV to OM2 [vxaq-en-eqvp off proximal aspect of OM1 graft]) by Dr. Belle, pod #4
- Post-MARY: LVEF 70%, no RWMA, mild MR, normal RV function, bvyew-zp-havs TR
- HTN/HLD
- RA
- DM II (HgA1c 9.4)
- GERD, hx gastric ulcer
- Back injury, hx rib fractures
- Urinary frequency/urgency
- Depression
- R knee surgery
- Acute postop blood loss anemia - stable, no transfusion
- Acute postop atelectasis
- Acute postop hypovolemia with subsequent hypervolemia
- Suspect acute postop pericarditis/ +rub
- Acute postop hyponatremia
Discussed patient care with: Cardiology, Nursing, Respiratory Therapy, Pharmacy and Care Team
Subjective
Procedure
s/p CABG x 4 (LAVERNE to LAD, GSV to RPDA, GSV to OM1, GSV to OM2 [qjtz-td-iemv off proximal aspect of OM1 graft]) by Dr. Belle
-
Date of Service: October 17, 2024
Pt c/o mild incisional pain, otherwise feels well. Ambulating halls without difficulty
Objective Data
-
PT 17.0 Sec (11.4-14.6) H 10/13/24 14:39
INR 1.36 10/13/24 14:39
APTT 29.2 Sec (23.4-35.0) 10/13/24 14:39
Vital Signs
Vital Signs
Temp Pulse Resp BP Pulse Ox
98.7 F 84 16 120/65 93
10/16/24 22:40 10/16/24 22:49 10/16/24 22:40 10/16/24 22:49 10/16/24 22:40
CT Intake/Output/Weight
10/16/24 10/16/24 10/17/24
06:59 18:59 06:59
Intake Total 480 / 610.4 480 / 720 240 / 720
Output Total 800 / 1400
Balance -320 / -789.6 480 / 720 240 / 720
SaO2: 93 (RA)
Physical Exam
-
General: Awake, Oriented and AOx3
Cardiovascular: Regular rate & rhythm, No Murmurs, No Rub and No Gallop
Respiratory: Decreased Breath Sounds (at bases, otherwise clear)
Sternum: Stable
Incision: Clean, Dry, Intact and Dressing Intact
Extremities: No Edema
Data Reviewed
-
Lab Results: Results Reviewed
Medications: Active Meds Reviewed
Chest X-Ray: Report Reviewed and Image Reviewed
ECG: Report Reviewed and Image Reviewed
[2024-10-17] MEDS: TYLENOL 1000 MG PO (06:12)
--- NOTE | 2024-10-17 06:15 | PTCARENOTE ---
Patient A+A+Ox3. No neurological deficits noted. AM labs collected and sent. Dr. Belle arrived and spoke with patient. Patient ambulated in hallway by self. Assessment/Interventions as documented.
[2024-10-17 06:20] LABS: Hematocrit 24.2 % (39.0-52.0); Hemoglobin 7.8 g/dL (13.0-18.0); Mean Corp Hgb Conc. 32.2 g/dL (33.0-37.0); Mean Corpuscular Hgb 28.1 pg (27.0-31.0); Mean Corpuscular Volume 87.1 fL (80.0-94.0); Mean Platelet Volume 9.7 fL (7.4-10.4); Platelet Count 265 10^3/uL (130-400); Red Blood Cell Count 2.78 10^6/uL (4.70-6.10); White Blood Cell Count 5.2 10^3/uL (4.8-10.8)
[2024-10-17 06:33] LABS: Blood Urea Nitrogen 27 mg/dl (9-20); Calcium 8.8 mg/dl (8.4-10.2); Carbon Dioxide 34 mmol/L (22-30); Chloride 94 mmol/L (98-107); Estimated Creatinine Clearance 98 ml/min; Glucose 139 mg/dl (70-99); Magnesium 2.4 mg/dl (1.6-2.3); Potassium 4.1 mmol/L (3.5-5.1); Sodium 134 mmol/L (135-145); eGFR > 60.00
--- NOTE | 2024-10-17 07:30 | PTCARENOTE ---
Assumed care of patient from maintenance technician 3rd shift RN. AAO x 3 ambulating at kimmie in the room. Denies pain. SR on monitor. Room air. Voiding in bathroom, Surgical dressing on sternum c,d,i. Lt Knee incision well approximated. Pulses palpable. Trace
anasarca appreciated. plan for day discussed.
[2024-10-17] MEDS: KCL 20 MEQ PO (07:36)
[2024-10-17] MEDS: LASIX 40 MG IV (07:36)
[2024-10-17] MEDS: NOVOLOG FLEXPEN 5 UNITS SC (07:44)
[2024-10-17] MEDS: NOVOLOG FLEXPEN-MODERATE RESISTANCE 1 UNITS SC (07:44)
[2024-10-17 07:47] LABS: Glucose - Point of Care 165 mg/dl (70-99)
--- NOTE | 2024-10-17 07:53 | PN.DE.MGMTRT ---
Insulin Management
- -
10/17/2024: Diabetes Management Follow up
58 year old male admitted for elective cardiac bypass surgery.
PMH: MV CAD, HTN, HLD, PUD, OA and T2DM. Pt reports he was taking Lantus 43 units BID, and Farxiga 10mg daily. States his PCP manages diabetes. He has a glucose monitor but does not check his blood sugars and doesn't know where his meter is. He does
not follow any specific diabetes diet and doesn't exercise regularly. A1C on admission was 9.4%, Cr 0.8, eGR >60
Pt awake, alert, oriented, sitting up in chair, offers no complaints, able to discuss diabetes care plan.
Now POD # 4 s/p CABG x 4, doing well. He was transitioned off Critical Care Glycemic Protocol to his OP regimen
AC novolog started with dinner 10/16 with home dose of lantus 43 units BID and Farxiga 10 mg daily. HS glucose 183 Fasting today 139.
Will make no change to current regimen, patient agreeable to outpatient novolog AC. RX for Novolog, Contour test strips and lancets in ambulatory orders.
Diabetes Nurse Educator saw pt and provide new glucose monitor and reinforced education on insulin pen needle use at home
Discussed with Nurse. Will cont to follow.
Diabetes History
- -
Type of Diabetes: 2 requiring insulin
Pre-Admission Diabetes Regimen
10/17/24
05:51
Creatinine 0.9
Lab Results
Hemoglobin A1c 9.4 % (4.0-5.6) H 10/06/24 12:22
Insulin Pump Settings
IP Diabetes Regimen
10/16/24 10/16/24 10/16/24
13:22 18:10 22:41
Glucose
POC Glucose 192 H 207 H 183 H
10/17/24 10/17/24
05:51 07:43
Glucose 139 H
POC Glucose 165 H
Meal type: Dinner
Meal type: Breakfast
Amount consumed: 50%
Amount consumed: 100%
Patient Education
[2024-10-17] MEDS: FARXIGA 10 MG PO (08:22)
[2024-10-17] MEDS: LANTUS 0.43 UNITS SC (08:22)
[2024-10-17] MEDS: TOPROL XL 12.5 MG PO (08:22)
[2024-10-17] MEDS: PROTONIX 40 MG PO (08:22)
[2024-10-17] MEDS: PACERONE 200 MG PO (08:22)
[2024-10-17] MEDS: LOW STRENGTH ASPIRIN 81 MG PO (08:22)
[2024-10-17] MEDS: PLAVIX 75 MG PO (08:22)
[2024-10-17] MEDS: BACTROBAN 2% OINTMENT 1 APPLIC NASAL (08:23)
[2024-10-17] MEDS: LASIX PO (08:23)
[2024-10-17] MEDS: NEURONTIN 100 MG PO (08:23)
[2024-10-17] MEDS: LIDOCAINE 4% PATCH TOPICAL (08:23)
[2024-10-17] MEDS: ZESTRIL 5 MG PO (08:23)
[2024-10-17] MEDS: COLCHICINE 0.6 MG PO (08:23)
[2024-10-17] MEDS: SENOKOT-S 1 TABLET PO (08:53)
--- NOTE | 2024-10-17 10:03 | W.DCSUMMARY ---
Discharge Summary
Discharge Data
Date of Admission: 10/13/24
Date of Discharge: 10/17/24
-
Pending Results: No
Hospital Course
Primary care physician: Maximiliano Braga
Outpatient imaging science professor: Pieter Ortiz
Inpatient consultants: [facility] cardiology, pulmonary interpretive program coordinator, diabetes nurse practitioner
Procedures:
1. CABG
Primary Diagnosis:
1. Multi vessel coronary artery disease
Secondary Diagnoses:
1. HTN/HLD
2. RA
3. DM II (HgA1c 9.4)
4. GERD, hx gastric ulcer
5. Back injury, hx rib fractures
6. Urinary frequency/urgency
7. Depression
8. R knee surgery
9. Acute postop blood loss anemia - stable, no transfusion
10. Acute postop atelectasis
11. Acute postoperative pulmonary insufficiency�expected
12. Acute postop hypovolemia with subsequent hypervolemia
13. Acute postop pericarditis/ +rub
14. Acute postop hyponatremia
HPI: 50-year-old male electively admitted on 10/13/2024 for CABG due to multivessel coronary disease with preserved EF (55 to 60%).
Hospital course: Patient underwent CABG x 4 (LAVERNE to LAD, GSV to RPDA, GSV to OM1, GSV to OM2 [hkpc-id-whnv off proximal aspect of OM1 graft]) by Dr. Eloy Belle. For further details please see operative note. Patient received no intraoperative
blood products. He returned to CVICU on Levophed, insulin, and Precedex. Patient was extubated at 1735 the day of surgery. Patient remains on insulin infusion x 48 hours due to history of uncontrolled diabetes with hemoglobin A1c of 9.4. Patient
was seen by diabetic nurse practitioner and insulins adjusted. Colchicine was initiated for postoperative pericarditis. Farxiga was resumed on postoperative day #2 and patient continued with diuresis. On postoperative day #3, right IJ was removed
and beta-phuong and low lisinopril were initiated. Temporary epicardial ventricular wires were clipped to skin level. On postoperative day #4, weight was close to baseline at 94.7 kg (baseline 94 kg) and CO2 was 34, therefore further Lasix
therapy was discontinued. Predischarge two-view chest x-ray reported small bilateral pleural effusions and a prescription for follow-up two-view chest x-ray in 1 week was given to patient. Patient experienced no episodes of postoperative atrial
fibrillation and prophylactic amiodarone was discontinued on discharge. As blood pressure remained low normal range, amlodipine was not resumed on discharge. Lisinopril was decreased from 40 mg to 5 mg daily. Patient ambulated in halls with
nursing staff and deemed steady and stable for discharge. Prescription for follow-up CBC in 1 week also given to patient as discharge hemoglobin 7.8 and patient asymptomatic. Transitional nurses will follow post discharge and were notified of
pending BMP/CBC and chest x-ray needed for next week.
Home medication changes:
Stop:
Amlodipine
Lisinopril 40 mg decreased to 5 mg daily
Discharge Plan
-
Patient Disposition: Home (Routine Discharge)
Discharge Diagnosis/Procedures: Cabg x 4
Condition: Good
Diet: Low Cholesterol, Low Sodium and Diabetic, Carb Controlled
Activity: No strenuous activity
Driving Restrictions: Not until seen by your Dr
Bathing Restrictions: OK to Shower
Blood Work: CBC w/o diff and BMP in 1 week
Others Tests: CXR (PA & lat) in 1 week
Other Services: Cardiac Rehab
Specialty Instructions: Weigh Daily- Call MD for wt gain/loss 3 lbs overnight/5 lbs in 1 week
Referrals:
CT Transitional Care Nurse [Outside] (The Cardiothoracic Transitional Care Nurse will call you to set up a visit in 1-2 days.)
[facility]. Cardiac Rehab [Outside] - 11/21/24 11:00 am
(Cardiac Rehab Orientation appointment and� First Exercise appointment is on __Wednesday, 11/21 at 11:00 am.____
The Cardiac Rehab gym is located on the first floor of the [facility].)
Fanny Lange PA-C [Specified Professional Personl] - 11/29/24 10:20 am
Maximiliano Braga PA [Family Provider] -
Eloy Belle MD [Active] - 11/14/24 1:30 pm
Prescriptions:
New
(DME) Contour Next Test Strips Strip
Qty: 200 0RF
Rx Instructions:
As Directed
insulin aspart U-100 [Novolog FlexPen U-100 Insulin] 100 unit/mL (3 mL) Insulin Pen
5 unit SC AC Qty: 5 1RF
(DME) lancets [Color Lancets] 21 gauge Misc
Qty: 200 0RF
Rx Instructions:
As Directed
clopidogrel 75 mg Tablet
75 mg PO DAILY Qty: 30 1RF
acetaminophen 325 mg Tablet
650 mg PO Q4HPRN PRN (Reason: mild pain,headache,temp >101F ) Qty: 0 0RF
pantoprazole 40 mg Tablet,Delayed Release (Dr/Ec)
40 mg PO DAILY Qty: 30 1RF
lisinopril 5 mg Tablet
5 mg PO DAILY Qty: 30 1RF
gabapentin 100 mg Capsule
100 mg PO TID Qty: 30 0RF
oxycodone 5 mg Tablet
5 mg PO Q4HPRN PRN (Reason: severe pain) Qty: 10 0RF
cyclobenzaprine 10 mg Tablet
5 mg PO Q8HPRN PRN (Reason: muscle spasm) Qty: 10 0RF
colchicine 0.6 mg Tablet
0.6 mg PO BID Qty: 60 0RF
Continued
rosuvastatin 20 MG tablet
20 mg PO QPM
insulin glargine [Lantus Solostar U-100 Insulin] 300 UNITS/3 ML insulin pen
43 units SC BID
aspirin 81 mg Tablet,Chewable
81 mg PO DAILY
cholecalciferol (vitamin D3) [Vitamin D3] 25 mcg (1,000 unit) Tablet
25 mcg PO DAILY
chlorthalidone 25 mg tablet
25 mg PO DAILY
dapagliflozin propanediol [Farxiga] 10 mg tablet
10 mg PO DAILY
carvedilol 12.5 mg tablet
12.5 mg PO BID Qty: 0 0RF
Discontinued
nitroglycerin 0.4 mg tablet, sublingual
0.4 mg sublingual [id number] PRN (Reason: chest pain) Qty: 25 5RF
magnesium 200 mg Tablet
300 mg PO DAILY
amlodipine 5 mg tablet
5 mg PO BID
lisinopril 40 mg tablet
40 mg PO DAILY
Discharge Orders:
Discharge Patient (As Directed); Ordered 10/17/24
Ordered By: Rosa Jay
Care Plan Goals
Care Plan Goals:
Problem: Readiness for enhanced knowledge related to diagnosis and treatment plan
Goal: Understand your diagnosis and treatment plan needs, including medications if applicable.
Instructions: Know your diagnosis, underlying causes and treatment plan options, including medications if applicable. Consult with your health care team to learn about your diagnosis and treatment plan, including medications if applicable.
Discharge Date and Time
Print Language: LIBYAN
--- NOTE | 2024-10-17 14:30 | PTCARENOTE ---
Discharge instructions reviewed with patient and . Importance of medication adherence stressed multiple times. Telemetry and int removed. Wheeled to car by volunteer.
[2024-10-18 09:31] LABS: B.E. - POC -0.5 mmol/L; Blood Urea Nitrogen - POC 19 mg/dl (3-120); Chloride - POC 108 mmol/L (96-111); Creatinine - POC 0.83 mg/dl (0.3-1.0); Glucose - POC 152 mg/dl (70-99); HCO3 - POC 25 mmol/L (21-28); Hematocrit - POC 31 % PCV (42-52); Hemodilution- POC Yes; Hemoglobin Calculated - POC 10.5; Ionized Calcium - POC 1.25 mmol/L (1.15-1.33); Lactate - POC 2.55 mmol/L (0.36-0.75); O2 Saturation %Calculated-POC 98.7 % (94-98); PCO2 - POC 45 mmHg (35-48); PO2 - POC 126 mmHg (83-108); Potassium - POC 4.2 mmol/L (3.5-5.1); Sodium - POC 142 mmol/L (136-145); Specimen Type - POC Arterial; pH - POC 7.36 (7.35-7.45)
== END 2024-10-17 14:20 | disposition home or self-care (01) | DRG 235 ==
LOC: CVICU 04:59
PROVIDERS: Nurse Practitioner; ADMITTING PHYSICIAN Thoracic Surgery (Cardiothoracic Vascular Surgery); FAMILY PHYSICIAN Physician Assistant
PROC: 0210093 Bypass Coronary Artery, One Artery from Coronary Artery with Autologous Venous Tissue, Open Approach (ICD-10-PCS; 2024-10-13)
PROC: 5A1221Z Performance of Cardiac Output, Continuous (ICD-10-PCS; 2024-10-13)
PROC: 06BQ4ZZ Excision of Left Saphenous Vein, Percutaneous Endoscopic Approach (ICD-10-PCS; 2024-10-13)
PROC: 021109W Bypass Coronary Artery, Two Arteries from Aorta with Autologous Venous Tissue, Open Approach (ICD-10-PCS; 2024-10-13)
PROC: 02100ZC Bypass Coronary Artery, One Artery from Thoracic Artery, Open Approach (ICD-10-PCS; 2024-10-13)
DX: I25.10 Atherosclerotic heart disease of native coronary artery without angina pectoris (principal); J95.1 Acute pulmonary insufficiency following thoracic surgery; D62 Acute posthemorrhagic anemia; J98.11 Atelectasis; E87.1 Hypo-osmolality and hyponatremia; I30.8 Other forms of acute pericarditis; Q24.5 Malformation of coronary vessels; E11.9 Type 2 diabetes mellitus without complications; K21.9 Gastro-esophageal reflux disease without esophagitis; E78.5 Hyperlipidemia, unspecified; E86.1 Hypovolemia; E87.70 Fluid overload, unspecified; Y83.2 Surgical operation with anastomosis, bypass or graft as the cause of abnormal reaction of the patient, or of later complication, without mention of misadventure at the time of the procedure; I10 Essential (primary) hypertension; M19.90 Unspecified osteoarthritis, unspecified site; R35.0 Frequency of micturition; F32.A Depression, unspecified; Z79.4 Long term (current) use of insulin; Z79.82 Long term (current) use of aspirin; Z79.899 Other long term (current) drug therapy; Z87.11 Personal history of peptic ulcer disease
CPT/HCPCS: 36415; 71045; 71046; 80048; 80053; 81003; 81015; 82248; 82330; 82565; 82805; 82947; 82962; 83036; 83735; 84132; 84302; 84520; 85014; 85018; 85025; 85027; 85049; 85610; 85730; 86850; 86900; 86901; 86920; 87070; 93005; 93880; 93923; 93930; 93970; 94002; C1713; P9045

== ENCOUNTER → 2024-10-25 08:41 | Outpatient (REF) | payer OTHER, SELFPAY | LOC: RAD 08:41 | PROVIDERS: ATTENDING PHYSICIAN Thoracic Surgery (Cardiothoracic Vascular Surgery) | DX: J90 Pleural effusion, not elsewhere classified (principal); E87.1 Hypo-osmolality and hyponatremia; D64.9 Anemia, unspecified | CPT/HCPCS: 71046 ==

== ENCOUNTER 2024-10-26 23:53 | Observation (INO) | payer OTHER, SELFPAY ==
[2024-10-26 20:11] VITALS: BP 123/71
[2024-10-26 21:16] VITALS: BMI 30.7
[2024-10-26 21:23] VITALS: BP 118/63
[2024-10-26 21:36] LABS: % Basophils 0.6 % (0-2); % Eosinophils 1.1 % (0-6); % Immature Granulocytes 0.2 % (0-0.5); % Lymphocytes 25.6 % (20.5-51.1); % Monocytes 11.3 % (1.7-9.3); % Neutrophils 61.2 % (42.2-75.2); Absolute Eosinophils 0.1 10^3/uL (0-0.7); Absolute Lymphocytes 1.6 10^3/uL (1.2-3.4); Absolute Monocytes 0.7 10^3/uL (0.1-0.6); Absolute Neutrophils 3.9 10^3/uL (1.4-6.5); Hematocrit 24.4 % (39.0-52.0); Hemoglobin 7.9 g/dL (13.0-18.0); Mean Corp Hgb Conc. 32.4 g/dL (33.0-37.0); Mean Corpuscular Hgb 27.6 pg (27.0-31.0); Mean Corpuscular Volume 85.3 fL (80.0-94.0); Mean Platelet Volume 10.1 fL (7.4-10.4); Nucleated Red Blood Cells % 0 % (-); Platelet Count 319 10^3/uL (130-400); Red Blood Cell Count 2.86 10^6/uL (4.70-6.10); Red Cell Dist. Width 14.8 % (11.5-14.5); White Blood Cell Count 6.3 10^3/uL (4.8-10.8)
--- NOTE | 2024-10-26 21:50 | ED.GENMED ---
History of Present Illness
General
Chief Complaint: Numbness
Source: patient
Exam Limitations: none
Time Seen by Provider: 10/26/24 21:06
Nursing documentation reviewed up to this point in time: agreed with
History of Present Illness
History of Present Illness:
Patient status post CABG on October 13, presents ED secondary to worsening right lower leg redness, swelling, and pain over the past 4 days. Denies fever or chills. Denies nausea or vomiting. Denies trauma. Patient states that veins were harvested
from his other leg for CABG. In addition, patient reports persistent numbness sensation of his right fourth and fifth finger, since day of surgery. He was informed by his surgeon that it is secondary to wrist having been present during the
procedure when his right wrist artery was accessed. Denies weakness. Patient is currently taking aspirin and Plavix, post procedure
Past History
Past History
ED Past Medical History: HTN, Hypercholesterolemia, IDDM and Other
ED Past Surgical History: None
Patient has exhibited threatening behavior?: No
Social History
Tobacco: Former smoker
Alcohol: Occasional
Drug: Marijuana
Personal:
Living: with family
Employment: Employed
Family History
Family History: Cancer and Sudden
Review of Systems
Review of Systems
Allergies reviewed?: Yes
All Other Systems: ROS reviewed and negative except as documented in HPI and ROS
Constitutional: Reports no symptoms
Respiratory: Reports no symptoms
Cardiac: Reports no symptoms
ABD/GI: Reports no symptoms
Musculoskeletal: Reports edema and other (right leg pain)
Skin: Reports no symptoms
Neurological: Reports no symptoms
Phy Exam
Physical Exam
Physical Exam:
Physical Exam
General: no apparent distress, not acutely ill. afebrile
Head: nc/at. eomi
Neck: supple. normal range of motion
Heart: s1/s2 regular rate and rhythm, no murmur.
Lungs: no acute respiratory distress. clear bilaterally
Abdomen: normal bowel sounds. not tender.
Neuro: alert and oriented x 3. no focal neurological deficits
Skin: no rash
Psychiatric: well kept. interactive and cooperative
Extremities: RLE: erythema/swelling/tenderness noted over right calf extending proximally along medial aspect of thigh. no open wound
Course
Orders/Labs/Results
Orders:
Orders
10/26/24 21:25
US Legs, Right [US Periph Venous LOWER Ext RT] Urgent
Comment:
Reason For Exam: RLE swelling/redness/pain
10/26/24 21:27
Complete Blood Count/With Diff Urgent
Comprehensive Metabolic Panel Urgent
Magnesium Urgent
10/26/24 22:51
Lactate Level [Lactic Acid] Urgent
Blood Culture Q30M
DARIUS Source: Blood/Venous
Specimen Description:
Blood Culture Q30M
DARIUS Source: Blood/Venous
Specimen Description:
10/26/24 23:03
Admit/Transfer Patient As Directed
Co-Sign Provider:
Level of Care: Observation services
Assign to:: Medical/Surgical
Physician / Group: aleksandar
Diagnosis: cellulitis
Code Status As Directed
Resuscitation Status: Full Code
PRN Pain Medication Management As Directed
May give lesser potent ordered pain med per pt: Yes
preference::
Protocol:: Medication orders for pain may be administered in a
manner that supports deferring to patient preference
when the pt is:
- Requesting an ordered lesser potent pain medication.
Least to most potent pain medications are defined
as: acetaminophen < NSAID < tramadol < opioids
(morphine, oxycodone, hydromorphone).
- Requesting a lesser dose of the same medication IF
ORDERED.
- Requesting a less intrusive route of administration
if both routes are prescribed by the provider (PO <
IV).
10/26/24 23:26
Vancomycin [Vancocin] 2,000 mg 0.9% Sodium Chloride 500 ml [Nss] 500 ml IV NOW
10/27/24 00:06
Acetaminophen [Tylenol] 650 mg PO Q4HPRN PRN
Cyclobenzaprine HCl [Flexeril] 5 mg PO Q8HPRN PRN
Dextrose 50%-Water [Dextrose 50% Syringe] 12.5 grams IV [id number] PRN
Glucagon [GlucaGen] 1 mg IM PRN PRN
Oxycodone [Roxicodone] 5 mg PO Q4HPRN PRN
10/27/24 00:06
Activity As Directed
Activity Level: As Tolerated
Bedside Glucose Monitoring As Directed
Frequency: AC&HS
Additional Instructions:: Change to q6h if pt on TPN, tube feeding or not eating
Pneumatic Compression Sleeves As Directed
Type: Knee high
Vital Signs As Directed
Frequency: Per unit guidelines
DX Deep Vein Thrombosis Video Routine
10/27/24 02:00
CeFAZolin 1 GRAM [Ancef] 1 gram in 5 ml IV Q8H
10/27/24 06:00
Complete Blood Count/With Diff IN AM
Comprehensive Metabolic Panel IN AM
10/27/24 07:30
Insulin Aspart Corrective Low [Novolog Flexpen-Low Resistance] See Protocol SC AC
Insulin Aspart Pen [Novolog Flexpen] 5 units SC AC
10/27/24 08:00
Aspirin Chewable [Low Strength Aspirin] 81 mg PO DAILY
Carvedilol [Coreg] 12.5 mg PO BID
Chlorthalidone [Hygroton] 25 mg PO DAILY
Cholecalciferol (Vitamin D3) [VITAMIN D3 (cholecalciferol)] 25 mcg PO DAILY
Clopidogrel Bisulfate [Plavix] 75 mg PO DAILY
Colchicine 0.6 mg PO BID
Dapagliflozin [Farxiga] 10 mg PO DAILY
Gabapentin [Neurontin] 100 mg PO TID
Lisinopril [Zestril] 5 mg PO DAILY
Pantoprazole [Protonix] 40 mg PO DAILY
10/27/24 Dinner
2000 calorie (17 carb) Diabetic
At Your Request: Full Participation
Diabetic Diet: Cholesterol Lowering
10/27/24 18:00
Rosuvastatin Calcium [Crestor] 20 mg PO QPM
Abnormal Lab Results
10/26/24
21:27
RBC 2.86 L 10^6/uL
(4.70-6.10)
Hgb 7.9 L g/dL
(13.0-18.0)
Hct 24.4 L %
(39.0-52.0)
MCHC 32.4 L g/dL
(33.0-37.0)
RDW 14.8 H %
(11.5-14.5)
Absolute Monos (auto) 0.7 H 10^3/uL
(0.1-0.6)
Monocytes % 11.3 H %
(1.7-9.3)
Sodium 134 L mmol/L
(135-145)
Chloride 97 L mmol/L
(98-107)
BUN 21 H mg/dl
(9-20)
Glucose 148 H mg/dl
(70-99)
Alkaline Phosphatase 155 H U/L
(38-126)
10/26/24 21:27
10/26/24 21:27
Vital Signs
Initial and Last Documented VS:
Initial Vital Signs
Temp Pulse Resp BP Pulse Ox
98.3 F 102 16 123/71 97
10/26/24 20:11 10/26/24 20:11 10/26/24 20:11 10/26/24 20:11 10/26/24 20:11
Last Documented Vital Signs
Temp Pulse Resp BP Pulse Ox
98.9 F 93 20 108/66 98
10/27/24 00:15 10/27/24 00:15 10/27/24 00:15 10/27/24 00:15 10/27/24 00:15
MDM/Problems Addressed
MDM/Problems Addressed:
US RLE: no DVT.
History and exam concerning for likely right lower leg cellulitis, quickly expanding. As such, in light of patient's recent surgery with diabetic history, will admit for IV antibiotics.
Blood culture pending.
*Critical Care Note
Total Time (30-74mins, 75-104mins- exclusive of procedures): Not Applicable
ED Attending Note
-
Portions of this chart may have been created with voice recognition software.� Occasional wrong word or��sound alike� substitutions may have occurred due to the inherent limitations of voice recognition software.
Discharge Plan
Departure
Patient Disposition: Admit
Date of Disposition: 10/26/24
Time of Disposition: 23:16
Admit to: Med/Surg
Presentation/result/management discussed w/ accepting MD/DO: Hospitalist
Discharge Problem:
Cellulitis of leg
Interventions
Interventions:
*Risk Screen - Suicide Last Done: 10/27/24 00:24
*General Assessment Last Done: 10/26/24 20:11
*Neglect/Abuse Screening Last Done: 10/26/24 20:11
*ED- Fall Risk Assessment Last Done: 10/26/24 21:16
*ED COVID-19 Vaccine History Last Done: 10/27/24 00:24
*Nursing Disposition Last Done: 10/26/24 23:57
ED- Neurological Assessment Last Done: 10/26/24 21:22
Discharge Date and Time
Discharge Date/Time: 10/27/24 00:01
[2024-10-26 21:52] LABS: ALT (SGPT) 25 U/L (0-50); AST (SGOT) 24 U/L (17-59); Albumin 3.6 g/dl (3.5-5.0); Alkaline Phosphatase 155 U/L (38-126); Blood Urea Nitrogen 21 mg/dl (9-20); Calcium 8.8 mg/dl (8.4-10.2); Carbon Dioxide 24 mmol/L (22-30); Chloride 97 mmol/L (98-107); Estimated Creatinine Clearance 90 ml/min; Glucose 148 mg/dl (70-99); Magnesium 1.7 mg/dl (1.6-2.3); Sodium 134 mmol/L (135-145); Total Bilirubin 0.6 mg/dl (0.2-1.3); Total Protein 6.4 g/dl (6.3-8.2); eGFR > 60.00
[2024-10-26 23:00] VITALS: BP 121/68
--- NOTE | 2024-10-26 23:07 | HPS.HSE ---
Family Physician
-
Family Physician: SOFIA Rehman
Chief Complaint
-
right leg swelling and pain
History of Present Illness
59-year-old male past medical history of CAD status post CABG, hypertension, hypercholesteremia, diabetes, rheumatoid arthritis, GERD, gastric ulcer, depression, presenting with right lower extremity redness, swelling and pain over the past few
days. Redness and swelling and pain started in the medial calf and progressed up the inner thigh. Denies fevers or chills. Denies any bug bites. Denies nausea or vomiting. Denies trauma.
Patient underwent CABG on 10/13. Veins were harvested from his other leg.
He reports persistent numbness of his right fourth and fifth finger since the day of surgery. He was told by his surgeon that this was due to right radial artery access. Denies any weakness.
His chest pain numbness has been improving. Denies shortness of breath.
Denies smoking or alcohol use.
Medical History
Past Medical History
Past Medical History: Reports Other (CAD status post CABG, hypertension, hypercholesteremia, diabetes, rheumatoid arthritis, GERD, gastric ulcer, depression)
Past Surgical History: Reports Other (CABG )
Social History
Tobacco: Non-smoker
Alcohol: None
Drug: None
Family History
Family History: Not pertinent
Allergies / Home Medications
Allergies reflects when Allergies were last updated in [facility].
Home Medications with original date entered in [facility]
Allergy/Medication List:
Allergies
Allergy/AdvReac Type Severity Reaction Status Date / Time
Sulfa (Sulfonamide Allergy Intermediate Rash Verified 10/26/24 20:15
Antibiotics)
sulfite Allergy Rash Verified 10/26/24 20:15
Home Medications
insulin glargine 100 unit/mL (3 mL) subcutaneous pen (Lantus Solostar U-100 Insulin) 43 units SC QPM Diabetes 04/15/21
rosuvastatin 20 mg tablet 20 mg PO QPM High Cholesterol 04/15/21
aspirin 81 mg chewable tablet 81 mg PO DAILY Blood Clot Prevention/Tx 07/11/24
cholecalciferol (vitamin D3) 25 mcg (1,000 unit) tablet (Vitamin D3) 25 mcg PO DAILY Supplement 07/11/24
chlorthalidone 25 mg tablet 25 mg PO DAILY Blood Pressure 10/13/24
dapagliflozin propanediol 10 mg tablet (Farxiga) 10 mg PO DAILY Diabetes 10/13/24
acetaminophen 325 mg tablet 650 mg (2 x 325 mg) PO Q4HPRN PRN mild pain,headache,temp >101F #0 tabs 10/17/24
carvedilol 12.5 mg tablet 12.5 mg PO BID Heart disease/condition #0 tabs 10/17/24
clopidogrel 75 mg tablet 75 mg PO DAILY Blood clot prevention/tx #30 tabs 10/17/24
colchicine 0.6 mg tablet 0.6 mg PO BID pericarditis #60 tabs 10/17/24
cyclobenzaprine 10 mg tablet 5 mg (1/2 x 10 mg) PO Q8HPRN PRN muscle spasm #10 tabs 10/17/24
gabapentin 100 mg capsule 100 mg PO TID nerve pain #30 caps 10/17/24
insulin aspart U-100 100 unit/mL (3 mL) subcutaneous pen (Novolog FlexPen U-100 Insulin aspart) 5 unit (0.05 mL) SC AC #5 ea 10/17/24
lisinopril 5 mg tablet 5 mg PO DAILY Blood pressure #30 tabs 10/17/24
oxycodone 5 mg tablet 5 mg PO Q4HPRN PRN severe pain #10 tabs 10/17/24
pantoprazole 40 mg tablet,delayed release 40 mg PO DAILY GI prophylaxis while on Plavix #30 tabs 10/17/24
Review of Systems
-
History Source: Patient
A 12 point ROS was completed and negative except as noted: Yes
Constitutional: Reports No Symptoms
EENT: Reports No Symptoms
Respiratory: Reports No Symptoms
Cardiac: Reports No Symptoms
Abdomen/GI: Reports No Symptoms
: Reports No Symptoms
Musculoskeletal: Reports No Symptoms
Skin: Reports See HPI
Neurological: Reports No Symptoms
Endocrine: Reports No Symptoms
Hematologic/Lymphatic: Reports No Symptoms
Psych: Reports No Symptoms
Physical Exam
Vital Signs
Vital Signs
Temp Pulse Resp BP Pulse Ox
98.8 F 96 14 121/68 96
10/26/24 23:00 10/26/24 23:00 10/26/24 23:00 10/26/24 23:00 10/26/24 23:00
Physical Exam
General: Well Developed, Well Nourished and No Apparent Distress
HEENT: NormoCephalic, Moist mucous membranes and Atraumatic
Respiratory: Clear
Cardiac: S1/S2 and Regular Rhythm; No Murmur or Rub
GI: Soft, Non Tender, Non Distended and Normal Bowel Sounds; No Organomegaly
Rectal: Deferred by Provider
Musculoskeletal: No Clubbing, No Cyanosis and No Edema
Skin: Other (right leg erythema and swelling left medial calf to inner thight ); No Rash
Neuro: Nonfocal/grossly intact
Laboratory Results
-
10/26/24 21:27
10/26/24 21:27
Laboratory Results
Total Bilirubin 0.6 mg/dl (0.2-1.3) 10/26/24 21:27
AST 24 U/L (17-59) 10/26/24 21:27
ALT 25 U/L (0-50) 10/26/24 21:27
Alkaline Phosphatase 155 U/L (38-126) H 10/26/24 21:27
Data Reviewed
-
Lab Data: Labs Reviewed by me
Old Records: Reviewed
Impression/Plan
-
IMPRESSION:
PLAN:
# Right lower extremity cellulitis
-Venous ultrasound negative for DVT
-Vancomycin given, changed to cefazolin
CAD status post CABG on 10/13
-Continue aspirin and Plavix, statin
-Continue oxycodone, gabapentin
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
-Outpatient monitoring and follow-up
Postoperative pericarditis
-Continue colchicine
Acute on chronic postoperative blood loss anemia after CABG
-Hemoglobin of 7.9 which has been stable since 10/15
-Continue to monitor
Essential hypertension
-Continue lisinopril, chlorthalidone, Coreg
Hypercholesterolemia
Type 2 diabetes
-Continue Lantus 43 units
-Continue dapagliflozin
-Insulin sliding scale
Rheumatoid arthritis
GERD
-Continue Protonix
History of gastric ulcer
Depression
Full code
DVT prophylaxis�SCDs
Diabetic/cardiac diet
[2024-10-26 23:14] LABS: Lactic Acid 0.8 mmol/L (0.7-2.0)
--- NOTE | 2024-10-26 23:35 | PHANOTE ---
10/26/24: Patient states he only takes the medications that are inside the 'shoe box'. Patient called his daughter to read out the medications that are inside the 'shoe box' which the post surgery home visiting nurse set up for him. Medications in
the shoe box reflects the finalized list of current meds. Notably no carvedilol,gabapentin, oxycodone in the box.
[2024-10-26] MEDS: VANCOCIN 540 MG IV (23:37)
[2024-10-27] VITALS (7 sets, daily range): BP systolic 83–109; BP diastolic 51–69; BMI 29.0
[2024-10-27 00:15] LABS: Glucose - Point of Care 136 mg/dl (70-99)
[2024-10-27] MEDS: TYLENOL 650 MG PO ×2 (01:15→23:53)
[2024-10-27] MEDS: ANCEF 5 IV ×2 (01:16→09:03)
[2024-10-27 06:44] LABS: % Basophils 0.6 % (0-2); % Eosinophils 1.9 % (0-6); % Immature Granulocytes 0.2 % (0-0.5); % Lymphocytes 28.8 % (20.5-51.1); % Monocytes 14.1 % (1.7-9.3); % Neutrophils 54.4 % (42.2-75.2); Absolute Eosinophils 0.1 10^3/uL (0-0.7); Absolute Lymphocytes 1.5 10^3/uL (1.2-3.4); Absolute Monocytes 0.7 10^3/uL (0.1-0.6); Absolute Neutrophils 2.9 10^3/uL (1.4-6.5); Hematocrit 23.6 % (39.0-52.0); Hemoglobin 7.6 g/dL (13.0-18.0); Mean Corp Hgb Conc. 32.2 g/dL (33.0-37.0); Mean Corpuscular Hgb 27.9 pg (27.0-31.0); Mean Corpuscular Volume 86.8 fL (80.0-94.0); Mean Platelet Volume 10.2 fL (7.4-10.4); Nucleated Red Blood Cells % 0 % (-); Platelet Count 285 10^3/uL (130-400); Red Blood Cell Count 2.72 10^6/uL (4.70-6.10); Red Cell Dist. Width 14.9 % (11.5-14.5); White Blood Cell Count 5.2 10^3/uL (4.8-10.8)
[2024-10-27 07:11] LABS: ALT (SGPT) 22 U/L (0-50); AST (SGOT) 20 U/L (17-59); Albumin 3.4 g/dl (3.5-5.0); Alkaline Phosphatase 158 U/L (38-126); Blood Urea Nitrogen 17 mg/dl (9-20); Calcium 8.9 mg/dl (8.4-10.2); Carbon Dioxide 25 mmol/L (22-30); Chloride 101 mmol/L (98-107); Estimated Creatinine Clearance 103 ml/min; Glucose 103 mg/dl (70-99); Sodium 136 mmol/L (135-145); Total Bilirubin 0.4 mg/dl (0.2-1.3); Total Protein 6.1 g/dl (6.3-8.2); eGFR > 60.00
[2024-10-27 08:04] LABS: Glucose - Point of Care 107 mg/dl (70-99)
[2024-10-27] MEDS: NEURONTIN 100 MG PO ×3 (08:59→21:47)
[2024-10-27] MEDS: VITAMIN D3 (cholecalciferol) 25 MCG PO (08:59)
[2024-10-27] MEDS: PROTONIX 40 MG PO (08:59)
[2024-10-27] MEDS: NOVOLOG FLEXPEN-LOW RESISTANCE SC ×2 (08:59→17:50)
[2024-10-27] MEDS: FARXIGA 10 MG PO (08:59)
[2024-10-27] MEDS: Hygroton 25 MG PO (09:00)
[2024-10-27] MEDS: COLCHICINE 0.6 MG PO ×2 (09:00→21:47)
[2024-10-27] MEDS: ZESTRIL 5 MG PO (09:00)
[2024-10-27] MEDS: PLAVIX 75 MG PO (09:00)
[2024-10-27] MEDS: COREG 12.5 MG PO (09:00)
[2024-10-27] MEDS: NOVOLOG FLEXPEN 5 UNITS SC ×2 (09:24→13:46)
[2024-10-27 11:15] LABS: Glucose - Point of Care 168 mg/dl (70-99)
--- NOTE | 2024-10-27 11:39 | W.PN.HOSP.TC ---
Today's Communication/Plan
-
CW IV ABX
Consult ID
Assessment / Plan
Assessment / Plan
Right lower extremity cellulitis
- Localized to right calf and rt medial lower thigh ? bug bite on right calf area
-Venous ultrasound negative for DVT
-cw cefazolin. Recent MRSA screen neg
- Consult ID
CAD status post CABG on 10/13
-Continue aspirin and Plavix, statin
-Continue oxycodone, gabapentin
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
-Outpatient monitoring and follow-up
Postoperative pericarditis
-Continue colchicine
Acute on chronic postoperative blood loss anemia after CABG
-Hemoglobin of 7.6 which has been stable since 10/15
-Continue to monitor
- Heme test stools
- Iron studies
Essential hypertension
-Continue lisinopril, Coreg with parameters. Hold Chlorthalidone as BP on lower side.
Hypercholesterolemia
Type 2 diabetes
-Continue Lantus 43 units, Novolog 5 units AC
-Continue dapagliflozin
-Insulin sliding scale
Rheumatoid arthritis
GERD
-Continue Protonix
History of gastric ulcer
Depression
Full code
DVT prophylaxis�SCDs
Diabetic/cardiac diet
DW RN
Total time spent on today's encounter was 52 minutes which included time spent in counseling the patient/family regarding diagnosis and treatment plan as listed above, goals of care, and symptom management. Case was discussed with nursing staff,
specialists, and care coordinators/case management. All labs and imaging personally reviewed by me. Remainder the time spent in detailed review of previous records, lab data, imaging, and other medical provider documentation.
Anticipated Discharge: > 48 hours
Subjective/Interval History
-
Date of Service: October 27, 2024
No fever chills.
Continued discomfort and pain in the right calf on the right medial thigh area. Continued swelling in that area. No trauma to that area. Unclear if he had any bug bite.
Objective Data
-
Labs:
Laboratory Results
10/27/24
06:19
WBC 5.2
Hgb 7.6 L
Hct 23.6 L
Plt Count 285
Sodium 136
Potassium 4.0
Chloride 101
Carbon Dioxide 25
BUN 17
Creatinine 0.8
Glucose 103 H
Calcium 8.9
Total Bilirubin 0.4
AST 20
ALT 22
Alkaline Phosphatase 158 H
Vital Signs:
Vital Signs
Temp Pulse Resp BP Pulse Ox
97.8 F 79 18 109/66 98
10/27/24 07:41 10/27/24 09:00 10/27/24 07:41 10/27/24 09:00 10/27/24 07:41
I&O
10/26/24 10/27/24 10/28/24
06:59 06:59 06:59
Intake Total 0 / 0 240 / 240
Balance 0 / 0 240 / 240
Review of Systems
-
Constitutional: Denies Fever
Respiratory: Denies Trouble Breathing
Cardiac: Denies Chest Pain
Abdomen/GI: Denies Abdominal Pain, Nausea or Vomiting
Neuro: Denies Dizzy
Physical Exam
-
General: No Apparent Distress
HEENT: Moist Mucous Membranes
Respiratory: Clear to Auscultation and Non Labored Respirations; Negative Accessory Resp Muscle Use
Cardiac: Regular Rhythm and S1/S2
GI: Soft
Musculoskeletal: Other (Localized area of induration in the right calf and extending to medial lower right thigh. Tender to palplation and slightly red but no warmth.)
Neuro: AO x 3
Psych: Calm
Data Reviewed
-
Labs: Labs Reviewed by me
[2024-10-27] MEDS: NSS 500 IV (12:07)
[2024-10-27] MEDS: LOW STRENGTH ASPIRIN 81 MG PO (12:18)
[2024-10-27] MEDS: NOVOLOG FLEXPEN-LOW RESISTANCE 1 UNITS SC (13:47)
[2024-10-27 14:08] LABS: Iron 32 ug/dl (49-181)
[2024-10-27 14:17] LABS: Percent Saturation 11 % (20-50); Total Iron Binding Capacity 269 ug/dl (261-462)
--- NOTE | 2024-10-27 16:07 | CON.ID ---
Consultation
-
Date/Time Consultation Requested: 10/27/24 11:34
Date/Time Consultation Performed: 10/27/24 16:08
Requesting Provider: Dr Blake
Performing Provider: Dr Castaneda
Reason for Consultation: Rt leg cellulitis
Chief Complaint / Past History
Chief Complaint
right leg swelling and pain
History of Present Illness
Mr Childs is a 59 year old male with history notable for RA CAD s/p CABG with reported vein graft harvest from the left side 10/13 who presented here for right lower extremity redness, swelling and pain for several days. There is xerosis in the
region though no wounds or overt breaks in the skin. No fevers or chills.
Since arrival here patient has been afebrile, bp stable, wbc 5.2, hgb 7.6, plt 285, cr 0.8, lactic acid 0.8, t bili 0.4, ast 20, alt 22, alk phos 158, US: No evidence of deep venous thrombosis of the right lower extremity, blood cultures x2 no
growth to date, mrsa screen negative, 10/06 A1c 9.4, had a dose of vancomycin, now on cefazolin
Past History
Additional Past Medical History:
CAD status post CABG, hypertension, hypercholesteremia, diabetes, rheumatoid arthritis, GERD, gastric ulcer, depression
Allergy History:
Sulfa (Sulfonamide Antibiotics) Allergy (Verified 10/26/24 23:24)
Rash
sulfite Allergy (Verified 10/26/24 20:15)
Rash
Medications Reviewed: Yes
Social History
Tobacco: Non-Smoker
Alcohol: None
Drug: None
Family History
Family History: Not Pertinent
Review of Systems
Review of Systems
General: Negative Fever or Chills
All systems: All other systems were reviewed and were negative
Vital Signs
Temp Pulse Resp BP Pulse Ox
98.5 F 76 18 106/55 99
10/27/24 15:27 10/27/24 15:27 10/27/24 15:27 10/27/24 15:27 10/27/24 15:27
Physical Exam
Physical Exam
Constitutional: No Acute Distress
Cardiovascular: Regular Rate and S1/S2; Negative Murmur or Rub
Pulmonary: Clear and Symmetric; Negative Wheezes, Rales or Rhonchi
Gastrointestinal: Soft, Non Tender, Non Distended and Normal Bowel Sounds
Skin: Warm, Dry and Rash (mild erythema and induration of the right posterior calf with lymphangitic spread to the right groin; xerosis, recently shaven leg); Negative Jaundice
Wound: Other (surgical sites on the L leg and sternum healing nicely without erythema, warmth, tenderness or dehiscence)
Lab / Diagnostic Study Results
10/27/24 06:19
10/27/24 06:19
Abs Immat Gran (auto) 0.0 10^3/uL (0-0.05) 10/27/24 06:19
Absolute Neuts (auto) 2.9 10^3/uL (1.4-6.5) 10/27/24 06:19
Absolute Lymphs (auto) 1.5 10^3/uL (1.2-3.4) 10/27/24 06:19
Absolute Monos (auto) 0.7 10^3/uL (0.1-0.6) H 10/27/24 06:19
Absolute Basos (auto) 0.0 10^3/uL (0-0.2) 10/27/24 06:19
Immature Gran % 0.2 % (0-0.5) 10/27/24 06:19
Neutrophils % 54.4 % (42.2-75.2) 10/27/24 06:19
Lymphocytes % 28.8 % (20.5-51.1) 10/27/24 06:19
Monocytes % 14.1 % (1.7-9.3) H 10/27/24 06:19
Eosinophils % 1.9 % (0-6) 10/27/24 06:19
Basophils % 0.6 % (0-2) 10/27/24 06:19
Lactic Acid 0.8 mmol/L (0.7-2.0) 10/26/24 22:51
Microbiology Results
Micro:
10/26/24 22:51 Blood Culture - Pending
Blood/Venous
10/26/24 22:51 Blood Culture - Pending
Blood/Venous
Assessment / Plan
Nonpurulent cellulitis RLE
- cellulitis might be due to xerosis or recently shaven leg (microtrauma to the skin)
- agree with cefazolin increased dose to 2 gm IV q8 hours
- could use lotion to the right leg for xerosis, would avoid the left leg per CT surgery post operative instructions
- on discharge can transition to keflex 500 mg PO QID x 7 days total
--- NOTE | 2024-10-27 16:51 | CM ---
case monitor reviewed patient's chart and patient was admitted under OBS OBS letter signed, patient lives with his spouse and daughter in a 2 story home, patient is independent with adl's and ambulation, patient drives, home when stable no needs.
PCP: Maximiliano Braga
Pharmacy Meg
Plan; Home when stable.
[2024-10-27 17:13] LABS: Glucose - Point of Care 159 mg/dl (70-99)
[2024-10-27] MEDS: CRESTOR 20 MG PO (17:26)
[2024-10-27] MEDS: ANCEF 10 IV (17:26)
[2024-10-27] MEDS: NOVOLOG FLEXPEN SC (17:49)
[2024-10-27] MEDS: LANTUS 0.43 UNITS SC (18:05)
[2024-10-27 21:07] LABS: Glucose - Point of Care 138 mg/dl (70-99)
[2024-10-27] MEDS: COREG PO (21:47)
[2024-10-27] MEDS: MELATONIN 5 MG PO (23:53)
[2024-10-28] MEDS: ANCEF 10 IV ×3 (01:53→17:34)
[2024-10-28 07:00] VITALS: BP 126/73
[2024-10-28 07:16] LABS: Hematocrit 24.5 % (39.0-52.0); Hemoglobin 7.9 g/dL (13.0-18.0); Mean Corp Hgb Conc. 32.2 g/dL (33.0-37.0); Mean Corpuscular Hgb 27.8 pg (27.0-31.0); Mean Corpuscular Volume 86.3 fL (80.0-94.0); Platelet Count 308 10^3/uL (130-400); Red Blood Cell Count 2.84 10^6/uL (4.70-6.10); Red Cell Dist. Width 14.6 % (11.5-14.5)
[2024-10-28 07:34] LABS: Glucose - Point of Care 109 mg/dl (70-99)
[2024-10-28] MEDS: NOVOLOG FLEXPEN-LOW RESISTANCE SC ×2 (07:38→12:09)
[2024-10-28] MEDS: COLCHICINE 0.6 MG PO ×2 (07:41→20:42)
[2024-10-28] MEDS: FARXIGA 10 MG PO (07:41)
[2024-10-28] MEDS: NEURONTIN 100 MG PO ×3 (07:41→21:10)
[2024-10-28] MEDS: PLAVIX 75 MG PO (07:41)
[2024-10-28] MEDS: PROTONIX 40 MG PO (07:41)
[2024-10-28] MEDS: ZESTRIL 5 MG PO (07:41)
[2024-10-28] MEDS: VITAMIN D3 (cholecalciferol) 25 MCG PO (07:41)
[2024-10-28] MEDS: COREG 12.5 MG PO ×2 (07:41→20:47)
[2024-10-28] MEDS: LOW STRENGTH ASPIRIN 81 MG PO (07:41)
[2024-10-28] MEDS: NOVOLOG FLEXPEN 5 UNITS SC ×3 (07:42→16:31)
[2024-10-28 12:08] LABS: Glucose - Point of Care 133 mg/dl (70-99)
--- NOTE | 2024-10-28 12:59 | W.PN.HOSP.TC ---
Today's Communication/Plan
-
CW IV Abx
DC planning
Assessment / Plan
Assessment / Plan
Right lower extremity cellulitis
- Localized to right calf and rt medial lower thigh -possibly secondary to recent shaving of the hair of his leg for his CABG procedure
-Venous ultrasound negative for DVT
-cw cefazolin. Recent MRSA screen neg
- Appt ID input
- Remains cellulitis without much improvement
- Current with IV abx today and review response in am
CAD status post CABG on 10/13
-Continue aspirin and Plavix, statin
-Continue oxycodone, gabapentin
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
-Outpatient monitoring and follow-up
Postoperative pericarditis
-Continue colchicine
Acute on chronic postoperative blood loss anemia after CABG
-Hemoglobin of 7.6 which has been stable since 10/15
-Continue to monitor
- Heme test stools
- Iron studies
Essential hypertension
-Continue lisinopril, Coreg with parameters. Hold Chlorthalidone as BP on lower side.
Hypercholesterolemia
Type 2 diabetes
-Continue Lantus 43 units, Novolog 5 units AC
-Continue dapagliflozin
-Insulin sliding scale
Rheumatoid arthritis
GERD
-Continue Protonix
History of gastric ulcer
Depression
Full code
DVT prophylaxis�SCDs
Diabetic/cardiac diet
DW RN
Anticipated Discharge: 24 - 48 hours
Subjective/Interval History
-
Date of Service: October 28, 2024
Patient presents still see much improvement with his right leg. Still painful and swollen. No fever chills.
Tolerating antibiotics without nausea vomiting or diarrhea.
Objective Data
-
Labs:
Laboratory Results
10/28/24
07:03
WBC 5.0
Hgb 7.9 L
Hct 24.5 L
Plt Count 308
Vital Signs:
Vital Signs
Temp Pulse Resp BP Pulse Ox
98.0 F 80 16 126/73 98
10/28/24 07:00 10/28/24 07:00 10/28/24 07:00 10/28/24 07:00 10/28/24 07:00
I&O
10/27/24 10/28/24 10/29/24
06:59 06:59 06:59
Intake Total 0 / 0 720 / 720
Balance 0 / 0 720 / 720
Review of Systems
-
Respiratory: Denies Trouble Breathing
Cardiac: Denies Chest Pain
Neuro: Denies Dizzy
Physical Exam
-
General: No Apparent Distress
Respiratory: Non Labored Respirations; Negative Accessory Resp Muscle Use
Cardiac: Regular Rhythm and S1/S2
Musculoskeletal: Edema, Right Lower Extrem (Still with large area of localized induration and tenderness in the upper calf on the lower medial thigh)
Neuro: AO x 3
Data Reviewed
-
Labs: Labs Reviewed by me
[2024-10-28 15:00] VITALS: BP 97/58
[2024-10-28 16:09] LABS: Glucose - Point of Care 172 mg/dl (70-99)
[2024-10-28] MEDS: NOVOLOG FLEXPEN-LOW RESISTANCE 1 UNITS SC (16:31)
[2024-10-28] MEDS: CRESTOR 20 MG PO (16:31)
[2024-10-28] MEDS: LANTUS 0.43 UNITS SC (17:35)
[2024-10-28] MEDS: TYLENOL 650 MG PO (20:42)
[2024-10-28] MEDS: MELATONIN 5 MG PO (20:42)
[2024-10-28 20:46] VITALS: BP 123/68
[2024-10-28 21:13] LABS: Glucose - Point of Care 152 mg/dl (70-99)
[2024-10-28 23:20] VITALS: BP 102/57
[2024-10-29] MEDS: ANCEF 10 IV ×3 (01:26→18:02)
[2024-10-29 07:54] VITALS: BP 133/83
[2024-10-29 08:03] LABS: Glucose - Point of Care 103 mg/dl (70-99)
[2024-10-29] MEDS: NOVOLOG FLEXPEN-LOW RESISTANCE SC ×2 (08:03→16:44)
[2024-10-29] MEDS: VITAMIN D3 (cholecalciferol) 25 MCG PO (08:58)
[2024-10-29] MEDS: PROTONIX 40 MG PO (08:58)
[2024-10-29] MEDS: COREG 12.5 MG PO ×2 (08:58→20:37)
[2024-10-29] MEDS: PLAVIX 75 MG PO (08:58)
[2024-10-29] MEDS: ZESTRIL 5 MG PO (08:58)
[2024-10-29] MEDS: COLCHICINE 0.6 MG PO ×2 (08:58→20:34)
[2024-10-29] MEDS: LOW STRENGTH ASPIRIN 81 MG PO (08:58)
[2024-10-29] MEDS: FARXIGA 10 MG PO (08:58)
[2024-10-29] MEDS: NEURONTIN 100 MG PO ×3 (08:58→20:34)
[2024-10-29] MEDS: NOVOLOG FLEXPEN 5 UNITS SC ×2 (08:59→12:56)
[2024-10-29 11:37] LABS: Glucose - Point of Care 212 mg/dl (70-99)
--- NOTE | 2024-10-29 11:47 | W.PN.ID1 ---
Date of Service
Date of Service: October 29, 2024
Today's Communication
Continue cefazolin
Assessment / Plan
Nonpurulent cellulitis RLE
-Not clear if current presentation is cellulitis, or possibly a thrombophlebitis or other noninfectious skin process.
Recent four-vessel CABG
Would recommend further imaging, either with duplex ultrasound with attention to affected areas, or CT scanning of the leg.
Given recent CABG, may have CT Sx eval.
Continue ancef for the present
Chief Complaint
-: Cellulitis
Subjective / Review of Systems
Patient seen and examined. Notes ongoing pain in right lower extremity. No apparent effect following 48 hours of antibiotics.
Review of Systems: No Fever and No Chills
Vital Signs / Physical Exam
Vital Signs
Vital Signs
Temp Pulse Resp BP Pulse Ox
97.7 F 74 16 133/83 96
10/29/24 07:54 10/29/24 07:54 10/29/24 07:54 10/29/24 07:54 10/29/24 08:20
Physical Exam
Constitutional: No Acute Distress, Comfortable and Non-toxic
Eyes: Sclera Anicteric
Pulmonary: Non Labored
Skin: Other (Nodularity noted of right posterior calf skin area, extending up to medial thigh. No significant warmth. Minimal to no erythema.)
Neurological: Awake and Alert
Psychological: Calm
Objective Data
Lab Data
Lab Results
10/28/24 07:03
10/27/24 06:19
Estimated Creat Clear 103 ml/min 10/27/24 06:19
Lactic Acid 0.8 mmol/L (0.7-2.0) 10/26/24 22:51
Total Bilirubin 0.4 mg/dl (0.2-1.3) 10/27/24 06:19
AST 20 U/L (17-59) 10/27/24 06:19
ALT 22 U/L (0-50) 10/27/24 06:19
Alkaline Phosphatase 158 U/L (38-126) H 10/27/24 06:19
Most recent labs reviewed.
Micro Results:
10/26/24 22:51 Blood Culture - Preliminary
Blood/Venous No Growth in 48 hours- Final report to follow
10/26/24 22:51 Blood Culture - Preliminary
Blood/Venous No Growth in 48 hours- Final report to follow
Care Review
Plan reviewed with: Physician (Hospitalist)
--- NOTE | 2024-10-29 12:25 | W.PN.HOSP.TC ---
Today's Communication/Plan
-
CT right leg
Abx per ID
Assessment / Plan
Assessment / Plan
Right lower extremity cellulitis
- Localized to right calf and rt medial lower thigh -possibly secondary to recent shaving of the hair of his leg for his CABG procedure.
- Venous ultrasound negative for DVT-common femoral vein and popliteal vein is clear and as well as greater saphenous vein.
- Recent MRSA screen neg
- No improvement with 48 hours of cefazolin. Not acting atypical cellulitis. Nontoxic.
-Discussed with ID about changing antibiotics -recommends further imaging of the leg. Will discuss with radiology about CT venogram.
CAD status post CABG on 10/13
-Continue aspirin and Plavix, statin
-Continue oxycodone, gabapentin
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
-Outpatient monitoring and follow-up
Postoperative pericarditis
-Continue colchicine
Acute on chronic postoperative blood loss anemia after CABG
-Hemoglobin of 7.6 which has been stable since 10/15
-Continue to monitor
- Heme test stools
- Iron studies
Essential hypertension
-Continue lisinopril, Coreg with parameters. Hold Chlorthalidone as BP on lower side.
Hypercholesterolemia
Type 2 diabetes
-Continue Lantus 43 units, Novolog 5 units AC
-Continue dapagliflozin
-Insulin sliding scale
Rheumatoid arthritis
GERD
-Continue Protonix
History of gastric ulcer
Depression
Full code
DVT prophylaxis�SCDs
Diabetic/cardiac diet
SHEILA RN
Discussed with ID
SHEILA radiologist
Total time spent on today's encounter was 52 minutes which included time spent in counseling the patient/family regarding diagnosis and treatment plan as listed above, goals of care, and symptom management. Case was discussed with nursing staff,
specialists, and care coordinators/case management. All labs and imaging personally reviewed by me. Remainder the time spent in detailed review of previous records, lab data, imaging, and other medical provider documentation.
Anticipated Discharge: > 48 hours
Subjective/Interval History
-
Date of Service: October 29, 2024
Pt sees no improvement in his right leg swelling or pain.
No fever or chills.
Objective Data
-
Vital Signs:
Vital Signs
Temp Pulse Resp BP Pulse Ox
97.7 F 74 16 133/83 96
10/29/24 07:54 10/29/24 07:54 10/29/24 07:54 10/29/24 07:54 10/29/24 08:20
I&O
10/28/24 10/29/24 10/30/24
06:59 06:59 06:59
Intake Total 720 / 720
Balance 720 / 720
Review of Systems
-
Respiratory: Denies Trouble Breathing
Cardiac: Denies Chest Pain
Abdomen/GI: Denies Abdominal Pain, Nausea or Vomiting
Neuro: Denies Dizzy
Physical Exam
-
General: Comfortable
Respiratory: Non Labored Respirations; Negative Accessory Resp Muscle Use
Cardiac: Regular Rhythm and S1/S2
GI: Soft
Musculoskeletal: Edema, Right Lower Extrem (Still with significant induration and swelling very localized to the posterior upper calf on the right medial mid thigh area. Not warm to touch.)
Neuro: AO x 3
[2024-10-29] MEDS: NOVOLOG FLEXPEN-LOW RESISTANCE 2 UNITS SC (12:57)
[2024-10-29 15:00] VITALS: BP 126/75
[2024-10-29] MEDS: NOVOLOG FLEXPEN SC (16:45)
[2024-10-29 17:03] LABS: Glucose - Point of Care 71 mg/dl (70-99)
[2024-10-29 18:01] LABS: Glucose - Point of Care 201 mg/dl (70-99)
[2024-10-29] MEDS: CRESTOR 20 MG PO (18:01)
[2024-10-29] MEDS: LANTUS 0.43 UNITS SC (18:02)
[2024-10-29] MEDS: MELATONIN 5 MG PO (20:36)
[2024-10-29 21:39] LABS: Glucose - Point of Care 164 mg/dl (70-99)
[2024-10-29 23:35] VITALS: BP 114/62
[2024-10-30] MEDS: ANCEF 10 IV ×3 (01:33→17:47)
[2024-10-30 03:18] LABS: Glucose - Point of Care 113 mg/dl (70-99)
[2024-10-30 06:42] LABS: Hematocrit 26.3 % (39.0-52.0); Hemoglobin 8.2 g/dL (13.0-18.0); Mean Corp Hgb Conc. 31.2 g/dL (33.0-37.0); Mean Corpuscular Hgb 27.1 pg (27.0-31.0); Mean Corpuscular Volume 86.8 fL (80.0-94.0); Mean Platelet Volume 9.9 fL (7.4-10.4); Platelet Count 377 10^3/uL (130-400); Red Blood Cell Count 3.03 10^6/uL (4.70-6.10); Red Cell Dist. Width 14.7 % (11.5-14.5); White Blood Cell Count 4.5 10^3/uL (4.8-10.8)
[2024-10-30 07:10] LABS: Blood Urea Nitrogen 15 mg/dl (9-20); Calcium 9.1 mg/dl (8.4-10.2); Carbon Dioxide 27 mmol/L (22-30); Chloride 101 mmol/L (98-107); Estimated Creatinine Clearance 117 ml/min; Glucose 101 mg/dl (70-99); Potassium 4.4 mmol/L (3.5-5.1); Sodium 136 mmol/L (135-145); eGFR > 60.00
[2024-10-30 07:15] VITALS: BP 118/62
[2024-10-30 07:31] LABS: Glucose - Point of Care 109 mg/dl (70-99)
[2024-10-30] MEDS: NOVOLOG FLEXPEN-LOW RESISTANCE SC ×2 (07:47→17:44)
[2024-10-30] MEDS: COREG 12.5 MG PO ×2 (09:25→20:29)
[2024-10-30] MEDS: PLAVIX 75 MG PO (09:25)
[2024-10-30] MEDS: COLCHICINE 0.6 MG PO ×2 (09:25→20:29)
[2024-10-30] MEDS: VITAMIN D3 (cholecalciferol) 25 MCG PO (09:25)
[2024-10-30] MEDS: PROTONIX 40 MG PO (09:25)
[2024-10-30] MEDS: LOW STRENGTH ASPIRIN 81 MG PO (09:25)
[2024-10-30] MEDS: NEURONTIN 100 MG PO ×3 (09:25→20:28)
[2024-10-30] MEDS: ZESTRIL PO (09:25)
[2024-10-30] MEDS: FARXIGA 10 MG PO (11:44)
[2024-10-30] MEDS: NOVOLOG FLEXPEN-LOW RESISTANCE 1 UNITS SC (11:44)
[2024-10-30] MEDS: NOVOLOG FLEXPEN SC (11:44)
[2024-10-30] MEDS: NOVOLOG FLEXPEN 5 UNITS SC ×2 (11:45→17:48)
[2024-10-30 12:01] LABS: Glucose - Point of Care 153 mg/dl (70-99)
--- NOTE | 2024-10-30 12:23 | W.PN.HOSP.TC ---
Today's Communication/Plan
-
monitor vitals
see plan
KPAD
cw abx for now
CT LE
Assessment / Plan
Assessment / Plan
Right lower extremity cellulitis or possible thrombophlebitis
- Localized to right calf and rt medial lower thigh -possibly secondary to recent shaving of the hair of his leg for his CABG procedure.
- Venous ultrasound negative for DVT-common femoral vein and popliteal vein is clear and as well as greater saphenous vein.
- Recent MRSA screen neg
- No improvement with cefazolin. Not acting atypical cellulitis. Nontoxic.
KPAD
-Discussed with ID about changing antibiotics -recommends further imaging of the leg. Discussed with radiology 10/30, they do not think venogram is necessary. CT lower extremity with IV contrast today.
CAD status post CABG on 10/13
-Continue aspirin and Plavix, statin
-Continue oxycodone, gabapentin
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
-Outpatient monitoring and follow-up
Postoperative pericarditis
-Continue colchicine
Acute on chronic postoperative blood loss anemia after CABG
hgb; 8.2
-Continue to monitor
Essential hypertension
-Continue lisinopril, Coreg with parameters. Hold Chlorthalidone as BP on lower side.
Hypercholesterolemia
Type 2 diabetes
-Continue Lantus 43 units, Novolog 5 units AC
-Continue dapagliflozin
-Insulin sliding scale
Rheumatoid arthritis
GERD
-Continue Protonix
History of gastric ulcer
Depression
Full code
DVT prophylaxis�SCDs
General: Comfortable
Respiratory: Non Labored Respirations; Negative Accessory Resp Muscle Use
Cardiac: Regular Rhythm and S1/S2
GI: Soft
Musculoskeletal: Edema, Right Lower Extrem (Still with significant induration and swelling very localized to the posterior upper calf on the right medial mid thigh area. Not warm to touch.)
Neuro: AO x 3
Anticipated Discharge: Within 24 hours
Subjective/Interval History
-
Date of Service: October 30, 2024
denies nausea
Objective Data
-
Labs:
Laboratory Results
10/30/24
05:58
WBC 4.5 L
Hgb 8.2 L
Hct 26.3 L
Plt Count 377 D
Sodium 136
Potassium 4.4
Chloride 101
Carbon Dioxide 27
BUN 15
Creatinine 0.7
Glucose 101 H
Calcium 9.1
Vital Signs:
Vital Signs
Temp Pulse Resp BP Pulse Ox
98.2 F 73 18 118/62 93
10/30/24 07:15 10/30/24 07:15 10/30/24 07:15 10/30/24 09:25 10/30/24 08:30
I&O
10/29/24 10/30/24 10/31/24
06:59 06:59 06:59
Intake Total 1440 / 1440
Balance 1440 / 1440
[2024-10-30 15:32] VITALS: BP 120/66
--- NOTE | 2024-10-30 15:38 | CM ---
Patient seen bedside.
Continue IV anbx.
Plan: home no needs anticipated.
--- NOTE | 2024-10-30 16:16 | W.PN.ID1 ---
Date of Service
Date of Service: October 30, 2024
Today's Communication
-Tomorrow anticipate transition cefazolin (d5) to cephalexin 500mg po qid through 11/04.
Assessment / Plan
Nonpurulent cellulitis RLE vs. phlebitis
Recent four-vessel CABG
- CT LE no abscess
- Leg improving
-Continue warm compress
-Tomorrow anticipate transition cefazolin (d5) to cephalexin 500mg po qid through 11/04.
Chief Complaint
-: Cellulitis
Subjective / Review of Systems
Right thigh and calf swelling better .
Vital Signs / Physical Exam
Vital Signs
Vital Signs
Temp Pulse Resp BP Pulse Ox
98.4 F 78 18 120/66 97
10/30/24 15:32 10/30/24 15:32 10/30/24 15:32 10/30/24 15:32 10/30/24 15:32
Physical Exam
Constitutional: No Acute Distress and Comfortable
Cardiovascular: Regular Rate and S1/S2
Pulmonary: Clear
Gastrointestinal: Soft, Non Tender and Non Distended
Extremities: Other (Right calf with varicosities extending up medial thigh, + vein firmness, minimal erythema)
Neurological: AO x 3
Objective Data
Lab Data
Lab Results
10/30/24 05:58
10/30/24 05:58
Estimated Creat Clear 117 ml/min 10/30/24 05:58
Lactic Acid 0.8 mmol/L (0.7-2.0) 10/26/24 22:51
Total Bilirubin 0.4 mg/dl (0.2-1.3) 10/27/24 06:19
AST 20 U/L (17-59) 10/27/24 06:19
ALT 22 U/L (0-50) 10/27/24 06:19
Alkaline Phosphatase 158 U/L (38-126) H 10/27/24 06:19
C-Reactive Protein 44.20 mg/L (0.0-10.00) H 10/30/24 05:58
Most recent labs reviewed.
Micro Results:
10/26/24 22:51 Blood Culture - Preliminary
Blood/Venous No Growth in 72 hours- Final report to follow
10/26/24 22:51 Blood Culture - Preliminary
Blood/Venous No Growth in 72 hours- Final report to follow
10/30/24 CT LE: Prominent venous varicosities within the distal medial thigh which appears to arise directly off of the distal femoral vein. This varicosity travels into the calf and bifurcates giving rise to multiple clustered varicosities within
the medial calf. There is associated skin thickening and subcutaneous edema. No abscess or fluid collections identified identified.
10/26/24 Periph Vascular US: No evidence of deep venous thrombosis of the right lower extremity.
[2024-10-30 16:41] LABS: Glucose - Point of Care 145 mg/dl (70-99)
[2024-10-30] MEDS: CRESTOR 20 MG PO (17:47)
[2024-10-30] MEDS: LANTUS 0.43 UNITS SC (17:47)
[2024-10-30 21:28] LABS: Glucose - Point of Care 179 mg/dl (70-99)
[2024-10-30 23:55] VITALS: BP 124/69
[2024-10-31] MEDS: ANCEF 10 IV (02:30)
[2024-10-31 06:53] LABS: Hematocrit 27.1 % (39.0-52.0); Hemoglobin 8.4 g/dL (13.0-18.0); Mean Corpuscular Hgb 26.8 pg (27.0-31.0); Mean Corpuscular Volume 86.6 fL (80.0-94.0); Mean Platelet Volume 9.5 fL (7.4-10.4); Platelet Count 375 10^3/uL (130-400); Red Blood Cell Count 3.13 10^6/uL (4.70-6.10); Red Cell Dist. Width 14.8 % (11.5-14.5); White Blood Cell Count 4.3 10^3/uL (4.8-10.8)
[2024-10-31 07:10] LABS: Blood Urea Nitrogen 16 mg/dl (9-20); Calcium 9.3 mg/dl (8.4-10.2); Carbon Dioxide 30 mmol/L (22-30); Chloride 102 mmol/L (98-107); Estimated Creatinine Clearance 103 ml/min; Glucose 111 mg/dl (70-99); Potassium 4.4 mmol/L (3.5-5.1); Sodium 140 mmol/L (135-145); eGFR > 60.00
[2024-10-31 07:25] VITALS: BP 133/80
[2024-10-31 07:27] LABS: Glucose - Point of Care 104 mg/dl (70-99)
[2024-10-31 07:56] LABS: % Basophils 1.2 % (0-2); % Eosinophils 2.1 % (0-6); % Immature Granulocytes 0.2 % (0-0.5); % Lymphocytes 39.8 % (20.5-51.1); % Monocytes 10.1 % (1.7-9.3); % Neutrophils 46.6 % (42.2-75.2); Absolute Basophils 0.1 10^3/uL (0-0.2); Absolute Eosinophils 0.1 10^3/uL (0-0.7); Absolute Lymphocytes 1.7 10^3/uL (1.2-3.4); Absolute Monocytes 0.4 10^3/uL (0.1-0.6); Nucleated Red Blood Cells % 0 % (-)
[2024-10-31] MEDS: NOVOLOG FLEXPEN-LOW RESISTANCE SC (08:24)
[2024-10-31] MEDS: FARXIGA 10 MG PO (08:26)
[2024-10-31] MEDS: PROTONIX 40 MG PO (08:26)
[2024-10-31] MEDS: COREG 12.5 MG PO (08:26)
[2024-10-31] MEDS: PLAVIX 75 MG PO (08:27)
[2024-10-31] MEDS: VITAMIN D3 (cholecalciferol) 25 MCG PO (08:27)
[2024-10-31] MEDS: NEURONTIN 100 MG PO (08:29)
[2024-10-31] MEDS: ZESTRIL PO (08:29)
[2024-10-31] MEDS: COLCHICINE 0.6 MG PO (08:29)
[2024-10-31] MEDS: NOVOLOG FLEXPEN 5 UNITS SC (08:29)
[2024-10-31] MEDS: LOW STRENGTH ASPIRIN 81 MG PO (08:29)
--- NOTE | 2024-10-31 10:36 | W.PN.HOSP.TC ---
Today's Communication/Plan
-
Monitor vital signs
see plan
Discussed with infectious disease, transition to oral antibiotics on discharge
Time of discharge 37 minutes
Assessment / Plan
Assessment / Plan
Right lower extremity cellulitis or possible super imposed thrombophlebitis
- Localized to right calf and rt medial lower thigh -possibly secondary to recent shaving of the hair of his leg for his CABG procedure.
- Venous ultrasound negative for DVT-common femoral vein and popliteal vein is clear and as well as greater saphenous vein.
- Recent MRSA screen neg
transition cefazolin (d5) to cephalexin 500mg po qid through 11/04
KPAD
-Discussed with ID about changing antibiotics -recommends further imaging of the leg. Discussed with radiology 10/30, they do not think venogram is necessary. CT lower extremity with varicosity. now improving. KPAD. With outpatient follow-up with
vascular surgery outpatient
CAD status post CABG on 10/13
-Continue aspirin and Plavix, statin
-Continue oxycodone, gabapentin
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
-Outpatient monitoring and follow-up
Postoperative pericarditis
-Continue colchicine
Acute on chronic postoperative blood loss anemia after CABG
hgb; 8.4
-Continue to monitor
Essential hypertension
-Continue lisinopril, Coreg with parameters. Hold Chlorthalidone as BP on lower side.
Hypercholesterolemia
Type 2 diabetes
-Continue Lantus 43 units, Novolog 5 units AC
-Continue dapagliflozin
-Insulin sliding scale
Rheumatoid arthritis
GERD
-Continue Protonix
History of gastric ulcer
Depression
Full code
DVT prophylaxis�SCDs
General: Comfortable
Respiratory: Non Labored Respirations; Negative Accessory Resp Muscle Use
Cardiac: Regular Rhythm and S1/S2
GI: Soft
Musculoskeletal: Edema, Right Lower Extrem (Still with significant induration and swelling very localized to the posterior upper calf on the right medial mid thigh area. Not warm to touch.)
Neuro: AO x 3
Anticipated Discharge: Today
Subjective/Interval History
-
Date of Service: October 31, 2024
denies pain
Objective Data
-
Labs:
Laboratory Results
10/31/24
06:12
WBC 4.3 L
Hgb 8.4 L
Hct 27.1 L
Plt Count 375
Sodium 140
Potassium 4.4
Chloride 102
Carbon Dioxide 30
BUN 16
Creatinine 0.8
Glucose 111 H
Calcium 9.3
Vital Signs:
Vital Signs
Temp Pulse Resp BP Pulse Ox
97.4 F 80 18 118/71 96
10/31/24 07:25 10/31/24 08:26 10/31/24 07:25 10/31/24 08:26 10/30/24 23:55
I&O
10/30/24 10/31/24 11/01/24
06:59 06:59 06:59
Intake Total 1440 / 1440 1680 / 1680
Balance 1440 / 1440 1680 / 1680
--- NOTE | 2024-10-31 10:50 | W.DCSUMMARY ---
Discharge Summary
Discharge Data
Date of Admission: 10/26/24
Date of Discharge: 10/31/24
-
Pending Results: No
Hospital Course
59-year-old male with past medical history of CAD status post recent CABG, numbness of right fourth/fifth finger secondary to recent CABG, acute on chronic anemia, essential hypertension, hyperlipidemia, type 2 diabetes mellitus, rheumatoid
arthritis, GERD, history of gastric ulcer, depression came to the hospital with right lower extremity cellulitis with possible superimposed thrombophlebitis. Patient venous ultrasound initially was done which was negative for DVT. Case was
discussed with interventional radiology who did not thought the patient needs CT venogram however recommended instead get CT lower extremity with contrast which was done and it showed varicosity. Patient symptoms continue to improve over time with
antibiotics, K-pad. On discharge patient instructed to follow-up with vascular surgery outpatient. Initially patient was on IV antibiotic which were later transitioned to p.o. antibiotics per infectious disease recommendation prior to discharge.
Once his symptoms continue to improve, he was then discharged home with instructions to follow-up with all his physicians outpatient.
Discharge Plan
-
Patient Disposition: Home (Routine Discharge)
Discharge Diagnosis/Procedures: Right lower extremity cellulitis with possible superimposed thrombophlebitis
Diet: As tolerated
Activity: As tolerated
Activity Restrictions/Additional Instructions:
APPLY KPAD NEEDED
Referrals:
Maximiliano Braga PA [Family Provider] - in less than 1 week
Ilya Martino MD [Active] - in one to two weeks
Prescriptions:
New
acetaminophen 325 mg Tablet
650 mg PO Q4HPRN PRN (Reason: mild pain,headache,temp >101F ) Qty: 0 0RF
carvedilol 12.5 mg Tablet
12.5 mg PO BID Qty: 0 0RF
gabapentin 100 mg Capsule
100 mg PO TID Qty: 0 0RF
oxycodone 5 mg Tablet
5 mg PO Q4HPRN PRN (Reason: severe pain) Qty: 0 0RF
cholecalciferol (vitamin D3) 25 mcg (1,000 unit) Tablet
25 mcg PO DAILY Qty: 0 0RF
cephalexin 500 mg capsule
500 mg PO QID 5 Days Qty: 20 0RF
Probiotic 10 billion cell capsule
10,000 mmu cells PO DAILY Qty: 10 0RF
Continued
rosuvastatin 20 MG tablet
20 mg PO QPM
aspirin 81 mg Tablet,Chewable
81 mg PO DAILY
dapagliflozin propanediol [Farxiga] 10 mg tablet
10 mg PO DAILY
insulin aspart U-100 [Novolog FlexPen U-100 Insulin] 100 unit/mL (3 mL) Insulin Pen
5 unit SC AC Qty: 5 1RF
clopidogrel 75 mg Tablet
75 mg PO DAILY Qty: 30 1RF
pantoprazole 40 mg Tablet,Delayed Release (Dr/Ec)
40 mg PO DAILY Qty: 30 1RF
lisinopril 5 mg Tablet
5 mg PO DAILY Qty: 30 1RF
colchicine 0.6 mg Tablet
0.6 mg PO BID Qty: 60 0RF
Changed
insulin glargine [Lantus Solostar U-100 Insulin] 300 UNITS/3 ML insulin pen
43 unit SC QPM Qty: 0 0RF
Held
chlorthalidone 25 mg tablet
25 mg PO DAILY
Hold Instructions: Restart when blood pressure is greater than 140/90
Discharge Orders:
Discharge Patient (As Directed); Ordered 10/31/24
Ordered By: Isacc Hoyt
Discharge Date and Time
Discharge Date/Time: 10/31/24 11:47
Print Language: LAO
[2024-10-31 11:12] VITALS: BP 117/72
--- NOTE | 2024-10-31 11:43 | CM ---
Plan: d/c home today, no needs.
== END 2024-10-31 11:47 | disposition home or self-care (01) ==
LOC: 4 EAST ACU 23:53
PROVIDERS: Internal Medicine; ADMITTING PHYSICIAN Hospitalist; ATTENDING PHYSICIAN Internal Medicine; EMERGENCY PHYSICIAN Emergency Medicine; FAMILY PHYSICIAN Physician Assistant; OTHER PHYSICIAN Student in an Organized Health Care Education/Training Program
DX: L03.115 Cellulitis of right lower limb (principal); R20.0 Anesthesia of skin; S80.861A Insect bite (nonvenomous), right lower leg, initial encounter; W57.XXXA Bitten or stung by nonvenomous insect and other nonvenomous arthropods, initial encounter; Y93.9 Activity, unspecified; Y92.9 Unspecified place or not applicable; M79.89 Other specified soft tissue disorders; E11.9 Type 2 diabetes mellitus without complications; E78.00 Pure hypercholesterolemia, unspecified; I10 Essential (primary) hypertension; I25.10 Atherosclerotic heart disease of native coronary artery without angina pectoris; D62 Acute posthemorrhagic anemia; L85.3 Xerosis cutis; R23.4 Changes in skin texture; R60.0 Localized edema; F32.A Depression, unspecified; K21.9 Gastro-esophageal reflux disease without esophagitis; M06.9 Rheumatoid arthritis, unspecified; Z87.11 Personal history of peptic ulcer disease; R07.9 Chest pain, unspecified; Z95.1 Presence of aortocoronary bypass graft; Z79.02 Long term (current) use of antithrombotics/antiplatelets; Z79.82 Long term (current) use of aspirin; Z88.2 Allergy status to sulfonamides; Z79.84 Long term (current) use of oral hypoglycemic drugs; Z79.4 Long term (current) use of insulin; Z87.891 Personal history of nicotine dependence
CPT/HCPCS: 73701; 80048; 80053; 82728; 82962; 83540; 83550; 83605; 83735; 85025; 85027; 86140; 87040; 93971; 99285; Q9967

== ENCOUNTER 2024-11-30 09:54 | Outpatient (RCR) | payer OTHER, SELFPAY ==
[2024-11-24 13:25] LABS: Glucose - Point of Care 90 mg/dl (70-99)
[2024-11-24 13:41] LABS: Glucose - Point of Care 123 mg/dl (70-99)
[2024-11-24 14:22] LABS: Glucose - Point of Care 97 mg/dl (70-99)
[2024-11-28 08:34] LABS: Glucose - Point of Care 129 mg/dl (70-99)
[2024-11-28 09:24] LABS: Glucose - Point of Care 96 mg/dl (70-99)
[2024-11-28 10:28] LABS: Glucose - Point of Care 120 mg/dl (70-99)
[2024-11-30 08:32] LABS: Glucose - Point of Care 149 mg/dl (70-99)
[2024-11-30 09:22] LABS: Glucose - Point of Care 107 mg/dl (70-99)
== END 2024-11-30 23:59 | disposition home or self-care (01) ==
LOC: CRHB 09:54
PROVIDERS: ATTENDING PHYSICIAN Internal Medicine Cardiovascular Disease; FAMILY PHYSICIAN Physician Assistant
DX: Z95.1 Presence of aortocoronary bypass graft (principal)
CPT/HCPCS: 82962; 93797; 93798

== ENCOUNTER 2025-01-04 08:59 | Outpatient (RCR) | payer OTHER, SELFPAY ==
[2024-12-12 09:13] LABS: Glucose - Point of Care 192 mg/dl (70-99)
[2024-12-12 09:36] LABS: Glucose - Point of Care 211 mg/dl (70-99)
[2024-12-14 08:31] LABS: Glucose - Point of Care 180 mg/dl (70-99)
[2024-12-14 09:28] LABS: Glucose - Point of Care 119 mg/dl (70-99)
[2024-12-19 08:28] LABS: Glucose - Point of Care 182 mg/dl (70-99)
[2024-12-19 09:27] LABS: Glucose - Point of Care 150 mg/dl (70-99)
[2024-12-21 08:31] LABS: Glucose - Point of Care 198 mg/dl (70-99)
[2024-12-21 09:36] LABS: Glucose - Point of Care 103 mg/dl (70-99)
[2024-12-26 08:36] LABS: Glucose - Point of Care 145 mg/dl (70-99)
[2024-12-26 09:29] LABS: Glucose - Point of Care 121 mg/dl (70-99)
== END 2025-01-04 23:59 | disposition home or self-care (01) ==
LOC: CRHB 08:59
PROVIDERS: ATTENDING PHYSICIAN Internal Medicine Cardiovascular Disease; FAMILY PHYSICIAN Physician Assistant
DX: I25.10 Atherosclerotic heart disease of native coronary artery without angina pectoris (principal); Z95.1 Presence of aortocoronary bypass graft (principal)
CPT/HCPCS: 82962; 93797; 93798

== ENCOUNTER 2025-01-16 09:42 | Outpatient (RCR) | payer OTHER, SELFPAY | END 2025-01-24 09:36 | disposition home or self-care (01) | LOC: CRHB 09:42 | PROVIDERS: ATTENDING PHYSICIAN Internal Medicine Cardiovascular Disease; FAMILY PHYSICIAN Physician Assistant | DX: I25.10 Atherosclerotic heart disease of native coronary artery without angina pectoris (principal); Z95.1 Presence of aortocoronary bypass graft | CPT/HCPCS: 93797; 93798 ==